=== PATIENT | male | born 1995 | race Caucasian/White ===

== ENCOUNTER → 2017-05-18 | Outpatient (CLI) | payer OTHER ==
--- NOTE | 2017-05-19 07:08 | XR ---
Right foot HISTORY: Pain 3 views of the right foot No comparisons Bone mineralization, joint spaces and alignment are maintained. No fracture or dislocation. Question soft tissue swelling laterally. IMPRESSION: Correlate for soft tissue swelling, foot MRI may be of benefit.
== END | disposition home or self-care (01) ==
LOC: RADXRMAIN 16:22
PROVIDERS: ATTEND Internal Medicine
DX: M79.671 Pain in right foot (principal)

== ENCOUNTER 2019-06-19 19:57 | Emergency (ER) | payer OTHER ==
[2019-06-19] MEDS ORDERED: KETOROLAC 30 MG/ML 1 ML VIAL IVP STA (20:29)
[2019-06-19] MEDS ORDERED: SODIUM CHLORIDE 0.9% 1,000 ML IV STA (20:29)
--- NOTE | 2019-06-19 20:41 | ED ---
Abdominal Pain HPI - General Chief Complaint: Abdominal Pain Stated Complaint: Abd Pain, Hernia Time Seen by Provider: 06/19/19 20:10 Source: patient, RN notes reviewed Mode of arrival: ambulatory Limitations: no limitations - History of Present Illness Initial Comments: This is a 23-year-old male with a benign past medical history who states that he's been having left lower quadrant abdominal pain for the past several days. It sharp in nature gets as severe as 5/10 severity currently is 3/10. No nausea vomiting diarrhea no overt fevers chills sweats no dysuria hematuria. No constipation diarrhea. He states he was seen at [facility] and sent here for evaluation for possible hernia. He does state he had done some heavy lifting months ago helping a friend move he did not do any heavy lifting recently. 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 ROS Other: All systems not noted in ROS Statement are negative. Past Medical History Past Medical History: No Reported History History of Any Multi-Drug Resistant Organisms: None Reported Past Surgical History: No Surgical Hx Reported Past Psychological History: No Psychological Hx Reported Smoking Status: Never smoker Past Alcohol Use History: None Reported Past Drug Use History: None Reported General Exam - General Exam Comments Initial Comments: This is a well-developed obese male who is awake alert oriented 3 Limitations: no limitations General appearance: alert, in no apparent distress Head exam: Present: atraumatic, normocephalic, normal inspection Eye exam: Present: normal appearance, PERRL, EOMI. Absent: scleral icterus, conjunctival injection, periorbital swelling ENT exam: Present: normal exam, mucous membranes moist Neck exam: Present: normal inspection. Absent: tenderness, meningismus, lymphadenopathy Respiratory exam: Present: normal lung sounds bilaterally. Absent: respiratory distress, wheezes, rales, rhonchi, stridor Cardiovascular Exam: Present: regular rate, normal rhythm, normal heart sounds. Absent: systolic murmur, diastolic murmur, rubs, gallop, clicks GI/Abdominal exam: Present: soft, tenderness (Left lower quadrant tenderness palpation no overt guarding rebound masses or bruits no definitive findings of hernia at this time), normal bowel sounds. Absent: distended, guarding, rebound, rigid Rectal exam: Present: deferred exam: Present: normal inspection. Absent: testicular tenderness Extremities exam: Present: normal inspection, full ROM, normal capillary refill. Absent: tenderness, pedal edema, joint swelling, calf tenderness Back exam: Present: normal inspection Neurological exam: Present: alert, oriented X3, CN II-XII intact Psychiatric exam: Present: normal affect, normal mood Skin exam: Present: warm, dry, intact, normal color. Absent: rash Course Vital Signs 06/19/19 06/19/19 06/19/19 20:01 20:44 22:30 Temperature 99.6 F 100.5 F H 98.4 F Pulse Rate 82 101 H 123 H Respiratory 18 18 16 Rate Blood Pressure 143/72 138/77 142/78 O2 Sat by Pulse 99 100 98 Oximetry Medical Decision Making - Medical Decision Making I did discuss the finding with the patien and offered admission which the patient declined due to taking care of his disabled father. He will instead try out patient Rx with return parameters. - Lab Data Result diagrams: 06/19/19 20:39 06/19/19 20:39 Lab Results 06/19/19 06/19/19 06/19/19 Range/Units 20:39 20:39 20:54 WBC 12.3 H (3.8-10.6) k/uL RBC 5.13 (4.30-5.90) m/uL Hgb 15.0 (13.0-17.5) gm/dL Hct 44.6 (39.0-53.0) % MCV 87.0 (80.0-100.0) fL MCH 29.2 (25.0-35.0) pg MCHC 33.6 (31.0-37.0) g/dL RDW 12.9 (11.5-15.5) % Plt Count 296 (150-450) k/uL Neutrophils % 85 % Lymphocytes % 8 % Monocytes % 4 % Eosinophils % 1 % Basophils % 0 % Neutrophils # 10.4 H (1.3-7.7) k/uL Lymphocytes # 1.0 (1.0-4.8) k/uL Monocytes # 0.6 (0-1.0) k/uL Eosinophils # 0.2 (0-0.7) k/uL Basophils # 0.0 (0-0.2) k/uL Sodium 137 (137-145) mmol/L Potassium 4.5 (3.5-5.1) mmol/L Chloride 101 (98-107) mmol/L Carbon Dioxide 26 (22-30) mmol/L Anion Gap 10 mmol/L BUN 12 (9-20) mg/dL Creatinine 0.95 (0.66-1.25) mg/dL Est GFR (CKD-EPI)AfAm >90 (>60 ml/min/1.73 sqM) Est GFR (CKD-EPI)NonAf >90 (>60 ml/min/1.73 sqM) Glucose 100 H (74-99) mg/dL Plasma Lactic Acid Yang 1.1 (0.7-2.0) mmol/L Calcium 9.3 (8.4-10.2) mg/dL Magnesium 1.7 (1.6-2.3) mg/dL Total Bilirubin 0.6 (0.2-1.3) mg/dL AST 34 (17-59) U/L ALT 40 (4-49) U/L Alkaline Phosphatase 97 (38-126) U/L Creatine Kinase 376 H (55-170) U/L Total Protein 7.5 (6.3-8.2) g/dL Albumin 4.3 (3.5-5.0) g/dL Amylase 65 (30-110) U/L Lipase 90 (23-300) U/L Urine Color Urine Appearance (Clear) Urine pH (5.0-8.0) Ur Specific Gallagher (1.001-1.035) Urine Protein (Negative) Urine Glucose (UA) (Negative) Urine Ketones (Negative) Urine Blood (Negative) Urine Nitrite (Negative) Urine Bilirubin (Negative) Urine Urobilinogen (<2.0) mg/dL Ur Leukocyte Esterase (Negative) Urine RBC (0-5) /hpf Urine WBC (0-5) /hpf Amorphous Sediment (None) /hpf Urine Mucus (None) /hpf 06/19/19 Range/Units 22:22 WBC (3.8-10.6) k/uL RBC (4.30-5.90) m/uL Hgb (13.0-17.5) gm/dL Hct (39.0-53.0) % MCV (80.0-100.0) fL MCH (25.0-35.0) pg MCHC (31.0-37.0) g/dL RDW (11.5-15.5) % Plt Count (150-450) k/uL Neutrophils % % Lymphocytes % % Monocytes % % Eosinophils % % Basophils % % Neutrophils # (1.3-7.7) k/uL Lymphocytes # (1.0-4.8) k/uL Monocytes # (0-1.0) k/uL Eosinophils # (0-0.7) k/uL Basophils # (0-0.2) k/uL Sodium (137-145) mmol/L Potassium (3.5-5.1) mmol/L Chloride (98-107) mmol/L Carbon Dioxide (22-30) mmol/L Anion Gap mmol/L BUN (9-20) mg/dL Creatinine (0.66-1.25) mg/dL Est GFR (CKD-EPI)AfAm (>60 ml/min/1.73 sqM) Est GFR (CKD-EPI)NonAf (>60 ml/min/1.73 sqM) Glucose (74-99) mg/dL Plasma Lactic Acid Yang (0.7-2.0) mmol/L Calcium (8.4-10.2) mg/dL Magnesium (1.6-2.3) mg/dL Total Bilirubin (0.2-1.3) mg/dL AST (17-59) U/L ALT (4-49) U/L Alkaline Phosphatase (38-126) U/L Creatine Kinase (55-170) U/L Total Protein (6.3-8.2) g/dL Albumin (3.5-5.0) g/dL Amylase (30-110) U/L Lipase (23-300) U/L Urine Color Yellow Urine Appearance Turbid (Clear) Urine pH 5.5 (5.0-8.0) Ur Specific Gallagher 1.026 (1.001-1.035) Urine Protein Trace H (Negative) Urine Glucose (UA) Negative (Negative) Urine Ketones Negative (Negative) Urine Blood Negative (Negative) Urine Nitrite Negative (Negative) Urine Bilirubin Negative (Negative) Urine Urobilinogen <2.0 (<2.0) mg/dL Ur Leukocyte Esterase Negative (Negative) Urine RBC <1 (0-5) /hpf Urine WBC 2 (0-5) /hpf Amorphous Sediment Rare H (None) /hpf Urine Mucus Many H (None) /hpf - Radiology Data Radiology results: report reviewed ([id number]), image reviewed (ct positve for diverticulosis) Disposition Clinical Impression: Abdominal pain, Diverticulitis large intestine Disposition: HOME SELF-CARE Condition: Fair Instructions (If sedation given, give patient instructions): Abdominal Pain (ED), Diverticulitis (ED) Prescriptions: metroNIDAZOLE [Flagyl] 500 mg PO QID #40 tab Ibuprofen 800 mg PO Q6HR PRN #20 tablet PRN Reason: Pain Levofloxacin [Levaquin] 750 mg PO DAILY 3 Days #10 tab Is patient prescribed a controlled substance at d/c from ED?: No Referrals: Samuel Griggs MD [Primary Care Provider] - 1-2 days
[2019-06-19 20:59] LABS: Basophils % (A) 0 %; Eosinophils # (A) 0.2 k/uL (0-0.7); Eosinophils % (A) 1 %; HCT 44.6 % (39.0-53.0); Lymphocytes % (A) 8 %; MCH 29.2 pg (25.0-35.0); MCHC 33.6 g/dL (31.0-37.0); Monocytes # (A) 0.6 k/uL (0-1.0); Monocytes % (A) 4 %; Neutrophils # (A) 10.4 k/uL (1.3-7.7); Neutrophils % (A) 85 %; Platelet Count 296 k/uL (150-450); RBC 5.13 m/uL (4.30-5.90); RDW 12.9 % (11.5-15.5); WBC 12.3 k/uL (3.8-10.6)
[2019-06-19 21:06] LABS: ALT 40 U/L (4-49); AST 34 U/L (17-59); African American GFR (CKD) >90 (>60 ml/min/1.73 sqM); Albumin 4.3 g/dL (3.5-5.0); Alkaline Phosphatase 97 U/L (38-126); Amylase 65 U/L (30-110); Anion Gap 10 mmol/L; Blood Urea Nitrogen 12 mg/dL (9-20); Calcium 9.3 mg/dL (8.4-10.2); Carbon Dioxide 26 mmol/L (22-30); Chloride 101 mmol/L (98-107); Creatine Kinase 376 U/L (55-170); Glucose 100 mg/dL (74-99); Magnesium 1.7 mg/dL (1.6-2.3); Non-African American GFR(CKD) >90 (>60 ml/min/1.73 sqM); Potassium 4.5 mmol/L (3.5-5.1); Sodium 137 mmol/L (137-145); Total Bilirubin 0.6 mg/dL (0.2-1.3); Total Protein 7.5 g/dL (6.3-8.2)
--- NOTE | 2019-06-19 22:34 | CT ---
EXAMINATION TYPE: CT abdomen pelvis wo con DATE OF EXAM: 06/19/2019 COMPARISON: None INDICATION: abdominal pain DLP: 2321.2 mGycm, Automated exposure control for dose reduction was used. CONTRAST: 0 mL of Isovue 300. Study performed without Oral Contrast TECHNIQUE: Axial images were obtained from above the diaphragm to the pubic rami in the axial plane a t 5 mm thick sections. Reconstructed images are reviewed on the computer in the coronal plane. FINDINGS: Limited CT sections are obtained the lung bases. The lung bases are clear. Very minimal hiatal shashi ia may be present. CT ABDOMEN: Liver: Normal Spleen: Normal Pancreas: Normal Adrenal glands: The adrenal glands are normal. Gallbladder: Normal Kidneys: No masses are evident. No hydronephrosis is present. No cysts are present. Study is witho ut intravenous contrast. No renal stones are evident. Aorta: Normal Inferior vena cava: Normal. CT PELVIS: Loops of bowel within the abdomen are unremarkable. Within the pelvis there is inflammatory change adjacent to the superior posterior aspect of the mid s igmoid colon. Couple of diverticuli are evident. As tiny air-filled diverticulum is present within th is inflammatory region. Findings are compatible with acute diverticulitis mid sigmoid colon. No absce ss formation or free air is identified. The study is without oral contrast causing some limitation of the bowel evaluation. Appendix: Normal as visualized. Urinary bladder: Normal. Genitourinary structures: Prostate is normal. There is some moderate free fluid within the pelvis whi ch is abnormal in a male. Osseous structures: No suspicious lytic or sclerotic lesions. IMPRESSIONS: 1. Acute diverticulitis mid sigmoid colon. No abscess formation or free air is identified. 2. Moderate free fluid within the pelvis. 3. Small hiatal hernia may be present.
[2019-06-19 22:46] LABS: Amorphous Sediment,Urine Rare /hpf; Appearance,Urine Turbid (Clear); Bilirubin,Urine Negative (Negative); Blood,Urine Negative (Negative); Color,Urine Yellow; Glucose,Urine (UA) Negative (Negative); Ketones,Urine Negative (Negative); Leukocyte Esterase,Urine Negative (Negative); Mucus,Urine Many /hpf; Nitrite,Urine Negative (Negative); PH, Urine 5.5 (5.0-8.0); Protein,Urine Trace (Negative); RBC,Urine <1 /hpf (0-5); Specific Gravity,Urine 1.026 (1.001-1.035); Urobilinogen,Urine <2.0 mg/dL (<2.0); WBC,Urine 2 /hpf (0-5)
[2019-06-19] MEDS ORDERED: cefTRIAXone IN SWFI 1,000 MG/10 ML SYRINGE IVP STA (22:56)
[2019-06-19] MEDS ORDERED: LEVOFLOXACIN 750 MG TAB PO STA (22:58)
[2019-06-19] MEDS ORDERED: metroNIDAZOLE 500 MG TAB PO STA (22:58)
[2019-06-19 23:25] VITALS: BP 134/82; PULSE 116; RESP 18; TEMP 98.5
== END 2019-06-19 23:26 | disposition home or self-care (01) ==
LOC: EC 19:57
DX: K57.32 Diverticulitis of large intestine without perforation or abscess without bleeding (principal); Z88.0 Allergy status to penicillin; Z91.018 Allergy to other foods; Z53.29 Procedure and treatment not carried out because of patient's decision for other reasons
CPT/HCPCS: 36415; 80053; 82150; 82550; 83605; 83690; 83735; 85025; 81001; 87040; 74176; 99284; 96374; 96361 ×3; J1885

== ENCOUNTER 2021-04-07 00:26 | Observation (INO) | payer OTHER ==
[2021-04-07] MEDS ORDERED: SODIUM CHLORIDE 0.9% 1,000 ML IV STA (02:22)
[2021-04-07] MEDS ORDERED: ONDANSETRON ODT 8 MG TAB.RAPDIS PO STA (02:22)
[2021-04-07] MEDS ORDERED: HYDROmorphone 0.5 MG/0.5 ML SYRINGE IVP STA (02:22)
[2021-04-07] MEDS ORDERED: ACETAMINOPHEN TAB 500 MG TAB PO STA (02:23)
[2021-04-07 03:31] LABS: ALT 35 U/L (4-49); AST 43 U/L (17-59); African American GFR (CKD) >90 (>60 ml/min/1.73 sqM); Albumin 3.7 g/dL (3.5-5.0); Alkaline Phosphatase 100 U/L (38-126); Anion Gap 10 mmol/L; Blood Urea Nitrogen 12 mg/dL (9-20); Calcium 9.4 mg/dL (8.4-10.2); Carbon Dioxide 23 mmol/L (22-30); Chloride 101 mmol/L (98-107); Glucose 249 mg/dL (74-99); Lipase 134 U/L (23-300); Non-African American GFR(CKD) >90 (>60 ml/min/1.73 sqM); Potassium 4.3 mmol/L (3.5-5.1); Sodium 134 mmol/L (137-145); Total Bilirubin 0.5 mg/dL (0.2-1.3); Total Protein 6.9 g/dL (6.3-8.2)
--- NOTE | 2021-04-07 03:38 | ED ---
Abdominal Pain HPI - General Chief Complaint: Abdominal Pain Stated Complaint: Abdominal pain Time Seen by Provider: 04/07/21 02:22 Source: patient Mode of arrival: ambulatory Limitations: no limitations - History of Present Illness Initial Comments: 25-year-old male patient presents for evaluation of left lower quadrant abdominal pain. Patient states he has felt chilled throughout the day. States he has not had a bowel movement in 2 days. Denies any diarrhea. Reports normal urination. Denies nausea or vomiting. Does have a history of diverticulitis and states this feels the same. He has not taken any medication for his symptoms. Patient denies any recent rash, cough, shortness of breath, chest pain, back pain, numbness, tingling, dizziness, weakness, hematuria, dysuria, urinary urgency, urinary frequency, headache, visual changes, or any other complaints. - Related Data Previous Rx's Medication Instructions Recorded Ibuprofen 800 mg PO Q6HR PRN #20 tablet 06/19/19 Levofloxacin [Levaquin] 750 mg PO DAILY 3 Days #10 tab 06/19/19 metroNIDAZOLE [Flagyl] 500 mg PO QID #40 tab 06/19/19 Allergies Allergy/AdvReac Type Severity Reaction Status Date / Time tree nut [Nut] Allergy Anaphylaxis Verified 04/07/21 00:49 Penicillins AdvReac Unknown Verified 04/07/21 00:49 Childhood Review of Systems ROS Statement: Those systems with pertinent positive or pertinent negative responses have been documented in the HPI. ROS Other: All systems not noted in ROS Statement are negative. Past Medical History Past Medical History: No Reported History Additional Past Medical History / Comment(s): diverticulitis History of Any Multi-Drug Resistant Organisms: None Reported Past Surgical History: No Surgical Hx Reported Past Psychological History: No Psychological Hx Reported Smoking Status: Never smoker Past Alcohol Use History: None Reported Past Drug Use History: None Reported General Exam Limitations: no limitations General appearance: alert, in no apparent distress, other (This is a well-devel oped, well-nourished adult male in no acute distress.) ENT exam: Present: normal exam, normal oropharynx, mucous membranes moist Respiratory exam: Present: normal lung sounds bilaterally. Absent: respiratory distress, wheezes, rales, rhonchi, stridor Cardiovascular Exam: Present: normal rhythm, tachycardia, normal heart sounds. Absent: systolic murmur, diastolic murmur, rubs, gallop, clicks GI/Abdominal exam: Present: soft, tenderness (Left lower quadrant), normal bowel sounds. Absent: distended, guarding, rebound, rigid Neurological exam: Present: alert, oriented X3, CN II-XII intact Psychiatric exam: Present: normal affect, normal mood Skin exam: Present: warm, dry, intact, normal color. Absent: rash Course Vital Signs 04/07/21 04/07/21 00:47 04:43 Temperature 100.6 F H 97.8 F Pulse Rate 130 H 125 H Respiratory 20 16 Rate Blood Pressure 168/105 145/99 O2 Sat by Pulse 98 100 Oximetry Medical Decision Making - Medical Decision Making 25-year-old male patient presented for evaluation of left lower quadrant abdominal pain. Physical examination did reveal left lower quadrant tenderness. Labs reviewed and did reveal white blood cell count 10.7, neutrophils 7.9. Blood sugar is elevated at 249, no history of diabetes, HgbA1C added. Lactic acid is normal. He is negative for COVID. CT abdomen and pelvis was obtained and did show evidence for diverticulitis with Fragmin and extraluminal air bubbles consistent for perforation. He does have penicillin ALLERGY so he'll be started on Flagyl, Vanco, and cefepime. I did discuss findings and results with the patient. He'll be admitted to the hospital for further evaluation and monitoring. Dr. Montaño is accepting. My attending is Dr. Mendez. - Lab Data Result diagrams: 04/07/21 02:47 04/07/21 02:47 Lab Results 04/07/21 04/07/21 04/07/21 Range/Units 02:47 02:47 02:47 WBC 10.7 H (3.8-10.6) k/uL RBC 4.84 (4.30-5.90) m/uL Hgb 14.8 (13.0-17.5) gm/dL Hct 44.0 (39.0-53.0) % MCV 90.9 (80.0-100.0) fL MCH 30.6 (25.0-35.0) pg MCHC 33.7 (31.0-37.0) g/dL RDW 13.0 (11.5-15.5) % Plt Count 301 (150-450) k/uL MPV 8.1 Neutrophils % 74 % Lymphocytes % 19 % Monocytes % 4 % Eosinophils % 2 % Basophils % 0 % Neutrophils # 7.9 H (1.3-7.7) k/uL Lymphocytes # 2.0 (1.0-4.8) k/uL Monocytes # 0.4 (0-1.0) k/uL Eosinophils # 0.2 (0-0.7) k/uL Basophils # 0.0 (0-0.2) k/uL Sodium 134 L (137-145) mmol/L Potassium 4.3 (3.5-5.1) mmol/L Chloride 101 (98-107) mmol/L Carbon Dioxide 23 (22-30) mmol/L Anion Gap 10 mmol/L BUN 12 (9-20) mg/dL Creatinine 0.78 (0.66-1.25) mg/dL Est GFR (CKD-EPI)AfAm >90 (>60 ml/min/1.73 sqM) Est GFR (CKD-EPI)NonAf >90 (>60 ml/min/1.73 sqM) Glucose 249 H (74-99) mg/dL Plasma Lactic Acid Yang 1.8 (0.7-2.0) mmol/L Calcium 9.4 (8.4-10.2) mg/dL Total Bilirubin 0.5 (0.2-1.3) mg/dL AST 43 (17-59) U/L ALT 35 (4-49) U/L Alkaline Phosphatase 100 (38-126) U/L Total Protein 6.9 (6.3-8.2) g/dL Albumin 3.7 (3.5-5.0) g/dL Lipase 134 (23-300) U/L Coronavirus (PCR) (Not Detectd) 04/07/21 Range/Units 02:47 WBC (3.8-10.6) k/uL RBC (4.30-5.90) m/uL Hgb (13.0-17.5) gm/dL Hct (39.0-53.0) % MCV (80.0-100.0) fL MCH (25.0-35.0) pg MCHC (31.0-37.0) g/dL RDW (11.5-15.5) % Plt Count (150-450) k/uL MPV Neutrophils % % Lymphocytes % % Monocytes % % Eosinophils % % Basophils % % Neutrophils # (1.3-7.7) k/uL Lymphocytes # (1.0-4.8) k/uL Monocytes # (0-1.0) k/uL Eosinophils # (0-0.7) k/uL Basophils # (0-0.2) k/uL Sodium (137-145) mmol/L Potassium (3.5-5.1) mmol/L Chloride (98-107) mmol/L Carbon Dioxide (22-30) mmol/L Anion Gap mmol/L BUN (9-20) mg/dL Creatinine (0.66-1.25) mg/dL Est GFR (CKD-EPI)AfAm (>60 ml/min/1.73 sqM) Est GFR (CKD-EPI)NonAf (>60 ml/min/1.73 sqM) Glucose (74-99) mg/dL Plasma Lactic Acid Yang (0.7-2.0) mmol/L Calcium (8.4-10.2) mg/dL Total Bilirubin (0.2-1.3) mg/dL AST (17-59) U/L ALT (4-49) U/L Alkaline Phosphatase (38-126) U/L Total Protein (6.3-8.2) g/dL Albumin (3.5-5.0) g/dL Lipase (23-300) U/L Coronavirus (PCR) Not Detected (Not Detectd) - Radiology Data Radiology results: report reviewed, image reviewed CT abdomen and pelvis with contrast was obtained. Report was reviewed in its entirety. Impression by Dr. Ellington shows diverticulitis with phlegmon and extraluminal air bubbles anterior to the mid sigmoid colon related to a localized perforation. Diverticulitis and more medial location as demonstrated on the previous exam. No drainable fluid collection. Disposition Clinical Impression: Diverticulitis, Perforated diverticulum Disposition: ADMITTED IP TO THIS [facility] Condition: Serious Referrals: Samuel Griggs MD [Primary Care Provider] - 1-2 days Decision to Admit Reason: Admit from [facility] Decision Date: 04/07/21 Decision Time: 04:45
[2021-04-07 03:44] LABS: Basophils % (A) 0 %; Eosinophils # (A) 0.2 k/uL (0-0.7); Eosinophils % (A) 2 %; HGB 14.8 gm/dL (13.0-17.5); Lymphocytes % (A) 19 %; MCH 30.6 pg (25.0-35.0); MCHC 33.7 g/dL (31.0-37.0); MCV 90.9 fL (80.0-100.0); Mean Platelet Volume 8.1; Monocytes # (A) 0.4 k/uL (0-1.0); Monocytes % (A) 4 %; Neutrophils # (A) 7.9 k/uL (1.3-7.7); Neutrophils % (A) 74 %; Platelet Count 301 k/uL (150-450); RBC 4.84 m/uL (4.30-5.90); WBC 10.7 k/uL (3.8-10.6)
--- NOTE | 2021-04-07 04:21 | CT ---
EXAMINATION TYPE: CT abdomen pelvis w con DATE OF EXAM: 04/07/2021 COMPARISON: 06/19/2019 HISTORY: LLQ pain; hx diverticulitis. prior without on PACS. CT DLP: 4618.4 mGycm Automated exposure control for dose reduction was used. CONTRAST: Performed with IV Contrast, patient injected with 100ml mL of Isovue 300. Images obtained from the diaphragm to the floor the pelvis with IV contrast. Lung bases are clear. There is no pleural effusion. Heart size is normal. There is fatty infiltration of the liver. Spleen is intact. There is no pancreatic mass. Gallbladder appears normal. The stomach is intact. There is no adrenal mass. Kidneys show satisfactory contrast opacification. There is no hydronephrosi s. There is no retroperitoneal adenopathy. Ureters are not dilated. Bladder distends smoothly. There is no inguinal hernia. There is fat stranding and extraluminal air bubbles anterior to the mid sigmoid colon related to acut e diverticulitis. No drainable fluid collection. Inflammatory mass measures 6 cm. There are scattered small sigmoid diverticula. Appendix is posterior and appears normal. There is no ascites. There is no evidence of a bowel obstruction. The lumbar vertebrae have normal alignment. Posterior elements are intact. There is no compression fr acture. IMPRESSION: There is diverticulitis with phlegmon and extraluminal air bubbles anterior to the mid sigmoid colon related to localized perforation. Diverticulitis in more medial location as demonstrated on the previ ous exam. No drainable fluid collection.
[2021-04-07] MEDS ORDERED: metroNIDAZOLE-NS PMX 500 MG in SALINE 1 100ML.BAG IVPB STA (04:40)
[2021-04-07] MEDS ORDERED: CEFEPIME 2 GM in SODIUM CHLORIDE 0.9% 100 ML IVPB STA (04:40)
[2021-04-07] MEDS ORDERED: VANCOMYCIN IV PER PHARMACY 1 EACH MISC MISCELLANE PRN (04:40)
[2021-04-07] MEDS ORDERED: NALOXONE 0.4 MG/ML 1 ML VIAL IV PRN (04:42)
[2021-04-07 04:53] LABS: Glucose,Whole Blood 188 mg/dL (75-99)
[2021-04-07] MEDS ORDERED: VANCOMYCIN 2,250 MG in SODIUM CHLORIDE 0.9% 500 ML 500 ML IVPB ONE (05:00)
[2021-04-07 05:14] LABS: Appearance,Urine Clear (Clear); Bilirubin,Urine Negative (Negative); Blood,Urine Negative (Negative); Color,Urine Yellow; Glucose,Urine (UA) 4+ (Negative); Ketones,Urine Negative (Negative); Leukocyte Esterase,Urine Negative (Negative); Nitrite,Urine Negative (Negative); PH, Urine 5.5 (5.0-8.0); Protein,Urine Negative (Negative); Urobilinogen,Urine <2.0 mg/dL (<2.0)
[2021-04-07 05:22] LABS: Specific Gravity,Urine >1.050 (1.001-1.035)
[2021-04-07] MEDS: SODIUM CHLORIDE 0.9% 1,000 ML IV SCH ×2 (05:31→18:04)
[2021-04-07 12:03] LABS: Glucose,Whole Blood 157 mg/dL (75-99)
--- NOTE | 2021-04-07 13:19 | P.GSHP ---
History of Present Illness H&P Date: 04/07/21 CHIEF COMPLAINT: Left lower quadrant abdominal pain HISTORY OF PRESENT ILLNESS: 25-year-old male who presented to the emergency department early this morning with complaints of left lower quadrant abdominal pain. He states the pain started 2 days ago. Not associated with any nausea or vomiting. He denied any fevers or chills at home. He does state he has a history of diverticulitis diagnosed approximately 2 years ago for which she was not hospitalized at that time due to family obligations but was given outpatient antibiotics. He has no previous history of colonoscopy. No He states surgical history. pain in the left lower quadrant was as bad as a 9 out of 10, currently it has improved and is approximately 5 out of 10. He states the pain is intermittent. He had a CT of the abdomen and pelvis that did show diverticulitis with phlegmon and extraluminal air bubbles anterior to mid sigmoid colon related to a localized perforation. No drainable fluid collectio n. He was noted to be febrile on admission max temp of 100.6 with leukocytosis. PAST MEDICAL HISTORY: Diverticulitis PAST SURGICAL HISTORY: No Previous surgical history MEDICATIONS: See list. ALLERGIES: See list. SOCIAL HISTORY: No illicit drug use. REVIEW OF SYSTEMS: CONSTITUTIONAL: Denies fever or chills. HEENT: Denies blurred vision, vision changes, or eye pain. Denies hemoptysis CARDIOVASCULAR: Denies chest pain or pressure. RESPIRATORY: No shortness of breath. GASTROINTESTINAL: See HPI for pertinent findings HEMATOLOGIC: Denies bleeding disorders. GENITOURINARY: Denies any blood in urine or increased urinary frequency. SKIN: Denies pruitis. Denies rash. PHYSICAL EXAM: VITAL SIGNS: Reviewed GENERAL: Well-developed in no acute distress. HEENT: No sclera icterus. Extraocular movements grossly intact. Moist buccal mucosa. Head is atraumatic, normocephalic. No nasal drainage. ABDOMEN: Soft. Obese. Nondistended. Tenderness with palpation toleft lower quadrant. NEUROLOGIC: Alert and oriented. Cranial nerves II through XII grossly intact. LABORATORY DATA: WBC 10.7 hemoglobin 14.8 platelet count 301,000 Sodium 134 potassium 4.3 BUN 12 creatinine 0.78 glucose 249 Total bilirubin 0.5 AST 43 ALT 35 alkaline phosphatase 100 lipase 134 IMAGING: CT abdomen and pelvis with contrast Diverticulitis with phlegmon and extraluminal air bubbles anterior to the mid sigmoid colon related to localized perforation. Diverticulitis is more medial location as demonstrated on the previous exam. No drainable fluid collection. ASSESSMENT: 1. Acute diverticulitis with localized perforation, no drainable fluid collection per CT abdomen and pelvis 2. Left lower quadrant pain 3. Fever 4. Leukocytosis PLAN: 1. Keep Nothing by mouth 2. Continue IV antibiotics, Flagyl and vancomycin 3. CBC, BMP, Vanco trough tomorrow 4. Pain patient has needed 5. Antiemetics as needed 6. No plans on surgical intervention at this time, we'll continue to monitor c losely. The impression and plan of care has been dictated as directed. Dr. Montaño I performed a history and examination of this patient, discussed the same with the dictator. I agree with the dictator's note ,documented as a scribe. Any additional findings or plans will be noted. Past Medical History Past Medical History: No Reported History Additional Past Medical History / Comment(s): diverticulitis History of Any Multi-Drug Resistant Organisms: None Reported Past Surgical History: No Surgical Hx Reported Past Psychological History: No Psychological Hx Reported Smoking Status: Never smoker Past Alcohol Use History: None Reported Past Drug Use History: None Reported - Past Family History Father Additional Family Medical History / Comment(s): Father from a "bedsore" Mother Family Medical History: Cancer Additional Family Medical History / Comment(s): Mother from thyroid cancer. Medications and Allergies Home Medications Medication Instructions Recorded Confirmed Type No Known Home Medications 04/07/21 04/07/21 History Allergies Allergy/AdvReac Type Severity Reaction Status Date / Time Penicillins Allergy Unknown Verified 04/07/21 06:32 Childhood tree nut [Nut] Allergy Anaphylaxis Verified 04/07/21 06:32 Surgical - Exam Vital Signs Temp Pulse Resp BP Pulse Ox 100.6 F H 130 H 20 168/105 98 04/07/21 00:47 04/07/21 00:47 04/07/21 00:47 04/07/21 00:47 04/07/21 00:47 Results - Labs 04/07/21 02:47 04/07/21 02:47 Abnormal Lab Results - Last 24 Hours (Table) 04/07/21 04/07/21 04/07/21 Range/Units 02:47 02:47 02:47 WBC 10.7 H (3.8-10.6) k/uL Neutrophils # 7.9 H (1.3-7.7) k/uL Sodium 134 L (137-145) mmol/L Glucose 249 H (74-99) mg/dL POC Glucose (mg/dL) (75-99) mg/dL Ur Specific Conway >1.050 H (1.001-1.035) Urine Glucose (UA) 4+ H (Negative) 04/07/21 Range/Units 04:50 WBC (3.8-10.6) k/uL Neutrophils # (1.3-7.7) k/uL Sodium (137-145) mmol/L Glucose (74-99) mg/dL POC Glucose (mg/dL) 188 H (75-99) mg/dL Ur Specific Conway (1.001-1.035) Urine Glucose (UA) (Negative) Diabetes panel 04/07/21 Range/Units 02:47 Sodium 134 L (137-145) mmol/L Potassium 4.3 (3.5-5.1) mmol/L Chloride 101 (98-107) mmol/L Carbon Dioxide 23 (22-30) mmol/L BUN 12 (9-20) mg/dL Creatinine 0.78 (0.66-1.25) mg/dL Glucose 249 H (74-99) mg/dL Calcium 9.4 (8.4-10.2) mg/dL AST 43 (17-59) U/L ALT 35 (4-49) U/L Alkaline Phosphatase 100 (38-126) U/L Total Protein 6.9 (6.3-8.2) g/dL Albumin 3.7 (3.5-5.0) g/dL Calcium panel 04/07/21 Range/Units 02:47 Calcium 9.4 (8.4-10.2) mg/dL Albumin 3.7 (3.5-5.0) g/dL Pituitary panel 04/07/21 Range/Units 02:47 Sodium 134 L (137-145) mmol/L Potassium 4.3 (3.5-5.1) mmol/L Chloride 101 (98-107) mmol/L Carbon Dioxide 23 (22-30) mmol/L BUN 12 (9-20) mg/dL Creatinine 0.78 (0.66-1.25) mg/dL Glucose 249 H (74-99) mg/dL Calcium 9.4 (8.4-10.2) mg/dL Adrenal panel 04/07/21 Range/Units 02:47 Sodium 134 L (137-145) mmol/L Potassium 4.3 (3.5-5.1) mmol/L Chloride 101 (98-107) mmol/L Carbon Dioxide 23 (22-30) mmol/L BUN 12 (9-20) mg/dL Creatinine 0.78 (0.66-1.25) mg/dL Glucose 249 H (74-99) mg/dL Calcium 9.4 (8.4-10.2) mg/dL Total Bilirubin 0.5 (0.2-1.3) mg/dL AST 43 (17-59) U/L ALT 35 (4-49) U/L Alkaline Phosphatase 100 (38-126) U/L Total Protein 6.9 (6.3-8.2) g/dL Albumin 3.7 (3.5-5.0) g/dL
[2021-04-07] MEDS: metroNIDAZOLE-NS PMX 500 MG in SALINE 1 100ML.BAG IVPB SCH ×2 (14:08→22:50)
[2021-04-07] MEDS: HYDROmorphone 0.5 MG/0.5 ML SYRINGE IVP PRN (16:19)
[2021-04-07] MEDS: VANCOMYCIN 2,250 MG in SODIUM CHLORIDE 0.9% 500 ML 500 ML IVPB SCH (16:19)
[2021-04-07 17:44] LABS: Glucose,Whole Blood 166 mg/dL (75-99)
[2021-04-07] MEDS: INSULIN ASPART (NovoLOG) 100 UNIT/ML VIAL SQ SCH (18:01)
[2021-04-07] MEDS: ENOXAPARIN 40 MG/0.4 ML SYRINGE SQ SCH (18:02)
[2021-04-07] MEDS: PANTOPRAZOLE 40 MG/10 ML VIAL IVP SCH (18:02)
[2021-04-08 00:11] LABS: Glucose,Whole Blood 114 mg/dL (75-99)
[2021-04-08] MEDS: INSULIN ASPART (NovoLOG) 100 UNIT/ML VIAL SQ SCH ×4 (00:40→17:31)
[2021-04-08] MEDS: VANCOMYCIN 2,250 MG in SODIUM CHLORIDE 0.9% 500 ML 500 ML IVPB SCH ×3 (01:03→16:37)
[2021-04-08] MEDS: HYDROmorphone 0.5 MG/0.5 ML SYRINGE IVP PRN (01:03)
[2021-04-08 06:14] LABS: Glucose,Whole Blood 129 mg/dL (75-99)
[2021-04-08] MEDS: metroNIDAZOLE-NS PMX 500 MG in SALINE 1 100ML.BAG IVPB SCH ×3 (06:14→21:14)
[2021-04-08] MEDS: ONDANSETRON 4 MG/2 ML VIAL IVP PRN (06:18)
[2021-04-08 07:29] LABS: African American GFR (CKD) >90 (>60 ml/min/1.73 sqM); Anion Gap 7 mmol/L; Blood Urea Nitrogen 8 mg/dL (9-20); Carbon Dioxide 26 mmol/L (22-30); Chloride 104 mmol/L (98-107); Glucose 137 mg/dL (74-99); Non-African American GFR(CKD) >90 (>60 ml/min/1.73 sqM); Potassium 4.1 mmol/L (3.5-5.1); Sodium 137 mmol/L (137-145)
[2021-04-08] MEDS: SODIUM CHLORIDE 0.9% 1,000 ML IV SCH ×3 (08:51→21:12)
[2021-04-08] MEDS: PANTOPRAZOLE 40 MG/10 ML VIAL IVP SCH (08:53)
[2021-04-08] MEDS: ENOXAPARIN 40 MG/0.4 ML SYRINGE SQ SCH (08:53)
[2021-04-08 09:09] LABS: Basophils # (A) 0.03 X 10*3/uL (0.00-0.10); Basophils % (A) 0.5 %; Eosinophils # (A) 0.17 X 10*3/uL (0.04-0.35); Eosinophils % (A) 2.6 %; HCT 39.1 % (39.6-50.0); HGB 12.9 g/dL (13.0-17.0); Immature Grans, Automated 0.5 %; Lymphocytes # (A) 1.55 X 10*3/uL (0.90-5.00); Lymphocytes % (A) 23.5 %; MCH 29.5 pg (27.0-32.0); MCV 89.3 fL (80.0-97.0); Mean Platelet Volume 10.7 fL (9.5-12.2); Monocytes # (A) 0.48 X 10*3/uL (0.20-1.00); Monocytes % (A) 7.3 %; NRBC Per 100 WBC 0 /100 WBCS (0.0-0.0); Neutrophils # (A) 4.33 X 10*3/uL (1.80-7.70); Neutrophils % (A) 65.6 %; Platelet Count 286 X 10*3/uL (140-440); RBC 4.38 X 10*6/uL (4.40-5.60); RDW 12.3 % (11.5-14.5); WBC 6.59 X 10*3/uL (4.50-10.00)
--- NOTE | 2021-04-08 10:26 | P.HPIM ---
History of Present Illness H&P Date: 04/07/21 Ben Burnham, is a 25-year-old male who presented to [facility] emergency room with a chief complaint of left lower quadrant abdominal pain, patient stated that he has constipation for 2 days and some chills otherwise he denies any complaints there was no nausea or vomiting no fever no diarrhea no blood in the stools and no urinary symptoms. He was evaluated in the emergency room vital examination on presentation revealed a temperature of 100.6 pulse 130 respiration 20 blood pressure 168/105 pulse ox 98% on room air Laboratory data revealed a white blood count of 10.7 hemoglobin 14.8 platelet count 301 sodium 134 potassium 4.3 chloride 101 CO2 23 BUN 12 creatinine 0.7 gl ucose level was 249 urine analysis was clear and coronavirus PCR was negative, hemoglobin A1c was elevated at 9.1 amylase and lipase normal. Testing in the emergency room revealed computed tomography scan of the abdomen and pelvis was done in the emergency room with contrast and revealed evidence of acute diverticulitis with phlegmon and extraluminal air bubbles anterior to the mid sigmoid colon related to localized perforation, no drainable fluid collection. Patient was started on IV antibiotics and was admitted to medical floor under surgical services. Medical consultation was requested for management while hospitalized. Past medical history is significant for : Patient does not have any significant past medical history, he has not been seen in our office for years, he is not taking any medications at home, obviously at this time he has evidence of diabetes mellitus. On review of systems Past Medical History Past Medical History: No Reported History Additional Past Medical History / Comment(s): diverticulitis History of Any Multi-Drug Resistant Organisms: None Reported Past Surgical History: No Surgical Hx Reported Past Anesthesia/Blood Transfusion Reactions: Unable to Obtain Additional Past Anesthesia/Blood Transfusion Reaction / Comment(s): Pt has never had surgery. Past Psychological History: No Psychological Hx Reported Smoking Status: Never smoker Past Alcohol Use History: None Reported Past Drug Use History: None Reported - Past Family History Father Additional Family Medical History / Comment(s): Father from a "bedsore" Mother Family Medical History: Cancer Additional Family Medical History / Comment(s): Mother from thyroid cancer. Medications and Allergies Home Medications Medication Instructions Recorded Confirmed Type No Known Home Medications 04/07/21 04/07/21 History Allergies Allergy/AdvReac Type Severity Reaction Status Date / Time Penicillins Allergy Unknown Verified 04/07/21 06:32 Childhood tree nut [Nut] Allergy Anaphylaxis Verified 04/07/21 06:32 Physical Exam Vitals: Vital Signs Temp Pulse Pulse Resp BP BP Pulse Ox 04/07/21 14:00 93 16 128/68 98 04/07/21 04:43 97.8 F 125 H 16 145/99 100 04/07/21 00:47 100.6 F H 130 H 20 168/105 98 Intake and Output 04/07/21 04/07/21 04/07/21 06:59 14:59 22:59 Intake Total 600 Balance 600 Intake: Intake, IV Titration 600 Amount Vancomycin 2,250 mg In 500 Sodium Chloride 0.9% 500 ml 500 ml @ 167 mls/hr IVPB Q8H [facility] Rx#: [id number] metroNIDAZOLE-NS PMX 500 100 mg In Saline 1 100ml.bag @ 100 mls/hr IVPB Q8H [facility] Rx#:[id number] Other: Weight 158.757 kg 158.757 kg In general patient is alert and oriented x 3 in no distress HEENT head normocephalic and atraumatic Neck is supple no JVD no goiter no lymphadenopathy no carotid bruit Chest examination is clear to auscultation no crackles no wheezing Cardiac exam reveals regular heart sounds S1 and S2 no gallops no murmurs Abdomen is soft with tenderness in the left lower quadrant no organomegaly with normal bowel sounds Extremity exam reveals no edema no cyanosis or clubbing Neurological examination reveals no gross focal deficits Results CBC & Chem 7: 04/08/21 06:38 04/08/21 06:38 Labs: Abnormal Lab Results - Last 24 Hours (Table) 04/07/21 04/07/21 04/07/21 Range/Units 02:47 02:47 02:47 WBC 10.7 H (3.8-10.6) k/uL Neutrophils # 7.9 H (1.3-7.7) k/uL Sodium 134 L (137-145) mmol/L Glucose 249 H (74-99) mg/dL POC Glucose (mg/dL) (75-99) mg/dL Hemoglobin A1c (0.0-6.0) % Ur Specific Standard >1.050 H (1.001-1.035) Urine Glucose (UA) 4+ H (Negative) 04/07/21 04/07/21 04/07/21 Range/Units 04:33 04:50 12:01 WBC (3.8-10.6) k/uL Neutrophils # (1.3-7.7) k/uL Sodium (137-145) mmol/L Glucose (74-99) mg/dL POC Glucose (mg/dL) 188 H 157 H (75-99) mg/dL Hemoglobin A1c 9.1 H (0.0-6.0) % Ur Specific Standard (1.001-1.035) Urine Glucose (UA) (Negative) Thrombosis Risk Factor Assmnt - Choose All That Apply Any of the Below Risk Factors Present?: Yes Each Factor Represents 1 point: Obesity (BMI >25) Other Risk Factors: No Other congenital or acquired thrombophilia - If yes, enter type in comment: No Thrombosis Risk Factor Assessment Total Risk Factor Score: 1 Thrombosis Risk Factor Assessment Level: Low Risk Assessment and Plan Plan: Acute diverticulitis with evidence of phlegmon and localized perforation. New onset diabetes mellitus History of diverticulitis DVT prophylaxis Lovenox. GI prophylaxis Protonix Patient maintained on IV antibiotics Thank you for this consultation we will continue to follow patient closely throughout stance Time with Patient: Greater than 30 (Greater than 60% of the total time spent in counseling and coordination of care)
--- NOTE | 2021-04-08 10:29 | P.PN ---
Subjective Progress Note Date: 04/08/21 Ben Burnham, is a 25-year-old male who presented to [facility] emergency room with a chief complaint of left lower quadrant abdominal pain, patient stated that he has constipation for 2 days and some chills otherwise he denies any complaints there was no nausea or vomiting no fever no diarrhea no blood in the stools and no urinary symptoms. He was evaluated in the emergency room vital examination on presentation revealed a temperature of 100.6 pulse 130 respiration 20 blood pressure 168/105 pulse ox 98% on room air Laboratory data revealed a white blood count of 10.7 hemoglobin 14.8 platelet count 301 sodium 134 potassium 4.3 chloride 101 CO2 23 BUN 12 creatinine 0.7 glucose level was 249 urine analysis was clear and coronavirus PCR was negative, hemoglobin A1c was elevated at 9.1 amylase and lipase normal. Testing in the emergency room revealed computed tomography scan of the abdomen and pelvis was done in the emergency room with contrast and revealed evidence of acute diverticulitis with phlegmon and extraluminal air bubbles anterior to the mid sigmoid colon related to localized perforation, no drainable fluid collection. Patient was started on IV antibiotics and was admitted to medical floor under surgical services. Medical consultation was requested for zara thakkar while hospitalized. Past medical history is significant for : Patient does not have any significant past medical history, he has not been seen in our office for years, he is not taking any medications at home, obviously at this time he has evidence of diabetes mellitus. On 04/08/2021 patient is alert and oriented 3. Patient reports some improvement with abdominal discomfort. Reports that he did have one episode of nausea without vomiting last night. Patient remains on IV antibiotics Flagyl and vancomycin. White blood cell 6.59. Temp 97.6, heart rate 79, respiratory rate 21, blood pressure 131/76 and patient satting 95% on room air Objective - Vital Signs Vital signs: Vital Signs Temp 97.6 F 04/08/21 08:00 Pulse 79 04/08/21 08:00 Resp 21 04/08/21 08:00 BP 131/76 04/08/21 08:00 Pulse Ox 95 04/08/21 08:00 Intake & Output 04/07/21 04/08/21 04/08/21 18:59 06:59 18:59 Intake Total 600 Balance 600 Weight 158.757 kg Intake: Intake, IV Titration 600 Amount Vancomycin 2,250 mg In 500 Sodium Chloride 0.9% 500 ml 500 ml @ 167 mls/hr IVPB Q8H [facility] Rx#: [id number] metroNIDAZOLE-NS PMX 500 100 mg In Saline 1 100ml.bag @ 100 mls/hr IVPB Q[facility]H [facility] Rx#:[id number] Other: Voiding Method Toilet Urinal # Voids 1 - Exam In general patient is alert and oriented x 3 in no distress HEENT head normocephalic and atraumatic Neck is supple no JVD no goiter no lymphadenopathy no carotid bruit Chest examination is clear to auscultation no crackles no wheezing Cardiac exam reveals regular heart sounds S1 and S2 no gallops no murmurs Abdomen is soft with tenderness in the left lower quadrant no organomegaly with normal bowel sounds Extremity exam reveals no edema no cyanosis or clubbing Neurological examination reveals no gross focal deficits - Labs CBC & Chem 7: 04/08/21 06:38 04/08/21 06:38 Labs: Abnormal Lab Results - Last 24 Hours (Table) 04/07/21 04/07/21 04/07/21 Range/Units 04:33 12:01 17:42 RBC (4.40-5.60) X 10*6/uL Hgb (13.0-17.0) g/dL Hct (39.6-50.0) % BUN (9-20) mg/dL Glucose (74-99) mg/dL POC Glucose (mg/dL) 157 H 166 H (75-99) mg/dL Hemoglobin A1c 9.1 H (0.0-6.0) % 04/08/21 04/08/21 04/08/21 Range/Units 00:10 06:12 06:38 RBC 4.38 L (4.40-5.60) X 10*6/uL Hgb 12.9 L (13.0-17.0) g/dL Hct 39.1 L (39.6-50.0) % BUN (9-20) mg/dL Glucose (74-99) mg/dL POC Glucose (mg/dL) 114 H 129 H (75-99) mg/dL Hemoglobin A1c (0.0-6.0) % 04/08/21 Range/Units 06:38 RBC (4.40-5.60) X 10*6/uL Hgb (13.0-17.0) g/dL Hct (39.6-50.0) % BUN 8 L (9-20) mg/dL Glucose 137 H (74-99) mg/dL POC Glucose (mg/dL) (75-99) mg/dL Hemoglobin A1c (0.0-6.0) % Assessment and Plan Plan: Acute diverticulitis with evidence of phlegmon and localized perforation. New onset diabetes mellitus. Hemoglobin A1c 9.1 History of diverticulitis DVT prophylaxis Lovenox. GI prophylaxis Protonix Patient maintained on IV antibiotics Thank you for this consultation we will continue to follow patient closely throughout stance
[2021-04-08 11:14] LABS: Glucose,Whole Blood 126 mg/dL (75-99)
[2021-04-08 11:18] VITALS: BMI 46.1
--- NOTE | 2021-04-08 12:03 | P.PN ---
Subjective Progress Note Date: 04/08/21 CHIEF COMPLAINT: Abdominal pain HISTORY OF PRESENT ILLNESS: PHYSICAL EXAM: VITAL SIGNS: Reviewed. GENERAL: Well-developed in no acute distress. HEENT: No sclera icterus. Extraocular movements grossly intact. Moist buccal mucosa. Head is atraumatic, normocephalic. ABDOMEN: Soft. Nondistended. Mild left lower quadrant tenderness. NEUROLOGIC: Alert and oriented. Cranial nerves II through XII grossly intact. ASSESSMENT: 1. Acute diverticulitis with localized perforation, no drainable fluid collection per CT abdomen and pelvis 2. Left lower quadrant pain 3. Fever, resolved 4. Leukocytosis, resolved PLAN: 1. May advance to clear liquid diet 2. Continue IV antibiotics, Flagyl and vancomycin 3. CBC, BMP, Vanco trough tomorrow 4. Continue with pain control/management 5. Antiemetics as needed 6. No plans on surgical intervention at this time, we'll continue to monitor closely. The impression and plan of care has been dictated as directed. Dr. Montaño I performed a history and examination of this patient, discussed the same with the dictator. I agree with the dictator's note ,documented as a scribe. Any additional findings or plans will be noted. Objective - Vital Signs Vital signs: Vital Signs Temp 97.6 F 04/08/21 08:00 Pulse 79 04/08/21 08:00 Resp 21 04/08/21 08:00 BP 131/76 04/08/21 08:00 Pulse Ox 95 04/08/21 08:00 Intake & Output 04/07/21 04/08/21 04/08/21 18:59 06:59 18:59 Intake Total 600 Balance 600 Weight 158.757 kg 158.757 kg Intake: Intake, IV Titration 600 Amount Vancomycin 2,250 mg In 500 Sodium Chloride 0.9% 500 ml 500 ml @ 167 mls/hr IVPB Q8H [facility] Rx#: [id number] metroNIDAZOLE-NS PMX 500 100 mg In Saline 1 100ml.bag @ 100 mls/hr IVPB Q8H [facility] Rx#:[id number] Other: Voiding Method Toilet Urinal # Voids 1 - Labs CBC & Chem 7: 04/08/21 06:38 04/08/21 06:38 Labs: Abnormal Lab Results - Last 24 Hours (Table) 0104/07/21 04/07/21 Range/Units 04:33 12:01 17:42 RBC (4.40-5.60) X 10*6/uL Hgb (13.0-17.0) g/dL Hct (39.6-50.0) % BUN (9-20) mg/dL Glucose (74-99) mg/dL POC Glucose (mg/dL) 157 H 166 H (75-99) mg/dL Hemoglobin A1c 9.1 H (0.0-6.0) % 04/08/21 04/08/21 04/08/21 Range/Units 00:10 06:12 06:38 RBC 4.38 L (4.40-5.60) X 10*6/uL Hgb 12.9 L (13.0-17.0) g/dL Hct 39.1 L (39.6-50.0) % BUN (9-20) mg/dL Glucose (74-99) mg/dL POC Glucose (mg/dL) 114 H 129 H (75-99) mg/dL Hemoglobin A1c (0.0-6.0) % 04/08/21 04/08/21 Range/Units 06:38 11:12 RBC (4.40-5.60) X 10*6/uL Hgb (13.0-17.0) g/dL Hct (39.6-50.0) % BUN 8 L (9-20) mg/dL Glucose 137 H (74-99) mg/dL POC Glucose (mg/dL) 126 H (75-99) mg/dL Hemoglobin A1c (0.0-6.0) %
[2021-04-08] MEDS: IOPAMIDOL CONTRAST (ORAL USE) VIAL PO PRN ×2 (14:17→15:47)
--- NOTE | 2021-04-08 16:12 | CT ---
EXAMINATION TYPE: CT abdomen pelvis wo con DATE OF EXAM: 04/08/2021 HISTORY: abdominal pain, hx of diverticulitis CT DLP: 3097.2 mGycm. Automated Exposure Control for Dose Reduction was Utilized. TECHNIQUE: CT scan of the abdomen and pelvis is performed with oral but without IV contrast. COMPARISON: CT abdomen and pelvis from yesterday and older study June 19, 2019 FINDINGS: Within the limitations of a non-contrast study, the following observations are made. LUNG BASES: No significant abnormality is appreciated. LIVER/GB: Liver remains markedly heterogeneous hypodense consistent with diffuse fatty infiltration. Mild hepatomegaly remains present. Vicarious excretion of contrast in the gallbladder is now present. PANCREAS: No significant abnormality is seen. SPLEEN: No significant abnormality is seen. ADRENALS: No significant abnormality is seen. KIDNEYS: No renal calculus or hydronephrosis seen bilaterally. BOWEL: Oral contrast reaches level terminal ileum making evaluation of distal bowel suboptimal. Scatt ered colonic diverticula are redemonstrated. Persistent moderate ill-defined fluid and fat stranding at level of the proximal to mid sigmoid colon in the midline of the upper to mid pelvis. No well-form ed fluid collection or drainable abscess. There are 3-4 tiny foci of extraluminal air system with per foration sagittal image 82 redemonstrated. Findings slightly improved from prior. GENITAL ORGANS: No gross abnormality seen. LYMPH NODES: No greater than 1cm abdominal or pelvic lymph nodes are appreciated. OSSEOUS STRUCTURES: No significant abnormality is seen. OTHER: No significant additional abnormality is seen. IMPRESSION: Redemonstration of perforated acute diverticulitis proximal to mid sigmoid colon with mod erate inflammatory change. Degree of inflammatory change and extraluminal air slightly improved from one day earlier.
[2021-04-08 17:30] LABS: Glucose,Whole Blood 126 mg/dL (75-99)
[2021-04-08 20:59] LABS: Glucose,Whole Blood 130 mg/dL (75-99)
[2021-04-08] MEDS ORDERED: VANCOMYCIN TROUGH DUE 1 EACH MISC MISCELLANE ONE (23:00)
[2021-04-09] MEDS: INSULIN ASPART (NovoLOG) 100 UNIT/ML VIAL SQ SCH ×3 (00:52→12:23)
[2021-04-09] MEDS: VANCOMYCIN 2,250 MG in SODIUM CHLORIDE 0.9% 500 ML 500 ML IVPB SCH ×2 (00:54→08:38)
[2021-04-09] MEDS: ONDANSETRON 4 MG/2 ML VIAL IVP PRN (04:09)
[2021-04-09] MEDS: metroNIDAZOLE-NS PMX 500 MG in SALINE 1 100ML.BAG IVPB SCH (05:09)
[2021-04-09 07:35] LABS: Glucose,Whole Blood 109 mg/dL (75-99)
[2021-04-09 07:55] VITALS: BP 155/92; PULSE 74; RESP 18; TEMP 97.9
[2021-04-09] MEDS: PANTOPRAZOLE 40 MG/10 ML VIAL IVP SCH (08:38)
[2021-04-09] MEDS: ENOXAPARIN 40 MG/0.4 ML SYRINGE SQ SCH (08:38)
[2021-04-09] MEDS ORDERED: lisinopriL 5 MG TAB PO SCH (10:00)
[2021-04-09 11:04] LABS: Basophils # (A) 0.03 X 10*3/uL (0.00-0.10); Basophils % (A) 0.5 %; Eosinophils # (A) 0.17 X 10*3/uL (0.04-0.35); Eosinophils % (A) 2.6 %; HCT 38.3 % (39.6-50.0); HGB 12.6 g/dL (13.0-17.0); Immature Grans, Automated 0.5 %; Lymphocytes # (A) 1.47 X 10*3/uL (0.90-5.00); Lymphocytes % (A) 22.8 %; MCH 29.5 pg (27.0-32.0); MCHC 32.9 g/dL (32.0-37.0); MCV 89.7 fL (80.0-97.0); Mean Platelet Volume 10.5 fL (9.5-12.2); Monocytes # (A) 0.41 X 10*3/uL (0.20-1.00); Monocytes % (A) 6.3 %; NRBC Per 100 WBC 0 /100 WBCS (0.0-0.0); Neutrophils # (A) 4.35 X 10*3/uL (1.80-7.70); Neutrophils % (A) 67.3 %; Platelet Count 301 X 10*3/uL (140-440); RBC 4.27 X 10*6/uL (4.40-5.60); RDW 12.3 % (11.5-14.5); WBC 6.46 X 10*3/uL (4.50-10.00)
[2021-04-09 11:16] LABS: Albumin 3.9 g/dL (3.8-4.9); Albumin/Globulin Ratio 1.7 (1.60-3.17); BUN/Creat Ratio 9.86 Ratio (12.00-20.00); Blood Urea Nitrogen 6.9 mg/dL (9.0-27.0); Globulin 2.3 g/dL (1.6-3.3); Non-African American GFR(CKD) 131.2 (60.0-200.0); Potassium 4.1 mmol/L (3.5-5.5); Total Bilirubin 0.4 mg/dL (0.30-1.20); Total Protein 6.2 g/dL (6.2-8.2)
[2021-04-09 12:07] LABS: Glucose,Whole Blood 124 mg/dL (75-99)
--- NOTE | 2021-04-09 13:35 | CDI ---
Documentation Clarification Form Date: 04/09/2021 01:27:35 PM From: Graciela OwensRicardoVANGIE reza, CCDS Admit Date: 04/08/2021 11:35:00 AM Patient Name: Ben Burnham Visit Number: [id number] Discharge Date: ATTENTION: The Clinical Documentation Specialists (CDI) and [facility] Coding Staff appreciate your assistance in clarifying documentation. Please respond to the clarification below the line at the bottom and electronically sign. The CDI & [facility] Coding staff will review the response and follow-up if needed. Please note: Queries are made part of the Legal Health Record. If you have any questions, please contact the author of this message via ITS. Dr. Samuel Griggs: The patient presented with the following clinical indicators: LLQ Abdominal pain with history of Diverticulitis, Chills, no bowel movement for 2 days and constipation. Additional clarification regarding the etiology/cause of the clinical indicators is requested. History/Risk Factors per the 04/07 Medical Management History & Physical: Diverticulitis. Clinical Indicators: Presented with LLQ abdominal pain as above. Admit with Diverticulitis with Perforated Diverticulum. 04/07 VS: T 100.6, P 130, R 20, BP 168/105, PO 98 RA, BMI: 46.2 04/07 LAB: WBC 10.7, Neutrophils 7.9, Na 134, Glucose 249, Hgb A1c 9.1, Lactic Acid 1.8 04/07 UA: Clear, specific gravity >1.050, 4+ glucose. 04/07 CT Abdomen/Pelvis: Diverticulitis with phlegmon anterior to the mid sigmoid colon related to localized perforation. Treatment 04/07: IV Dilaudid 0.5 mg x2, po Zofran 4 mg x1, IV Na Cl 1,000 mls @ 999 mls/hr q1H, IV Cefepime 100 mls @ 200 mls/hr x1, IV Flagyl 100 mls @ 100 mls/hr x1, IV Vancomycin 500 mls @ 167 mls/hr x1. In your professional opinion, please clarify if these findings signify one of the following conditions: [ x ] Sepsis POA [ ] Sepsis, Not POA [ ] Sepsis ruled out [ ] Other, please specify [ ] Unable to determine (Template Last Reviewed: April 2020) MARITZA
--- NOTE | 2021-04-09 13:37 | P.DS ---
Providers Date of admission: 04/08/21 11:35 Expected date of discharge: 04/09/21 Attending physician: Colby Montaño Consults: 04/07/21 08:11 Consult Physician Routine Consulting Provider: Samuel Griggs Consult Reason/Comments: Medical management Do you want consulting provider notified?: Yes Primary care physician: Samuel Griggs [facility] Course: Discharge diagnosis: Acute diverticulitis, new onset diabetes mellitus This is a 25-year-old male who presented to the emergency department 2 days ago with complaints of abdominal pain in the left lower quadrant. He had a CT of e abdomen and pelvis with evidence of acute diverticulitis with localized perforation. Patient was started on Flagyl and vancomycin. He's been afebrile. He he was diagnosed with new onset diabetes mellitus during this hospitalization and had been followed by Dr. Griggs and started on metformin. He had a repeat CT of the abdomen and pelvis yesterday that showed redemonstration of perforated acute diverticulitis proximal to mid sigmoid colon with moderate inflammatory change. Degree of inflammatory change and extraluminal or slightly improved from 1 day earlier. Patient has been passing gas, he denies any nausea or vomiting. He has no leukocytosis. And tolerating his diet. See chart for further details. The impression and plan of care has been dictated as directed. I performed a history and examination of this patient, discussed the same with the dictator. I agree with the dictator's note ,documented as a scribe. Any additional findings or plans will be noted. Patient Condition at Discharge: Stable Plan - Discharge Summary Discharge Rx Participant: No New Discharge Prescriptions: New metroNIDAZOLE [Flagyl] 500 mg PO BID 10 Days #20 tab metFORMIN HCL [Glucophage] 500 mg PO BID-W/MEALS #30 tab Levofloxacin [Levaquin] 500 mg PO DAILY 10 Days #10 tab lisinopriL [Zestril] 5 mg PO DAILY #30 tab Discharge Medication List Levofloxacin [Levaquin] 500 mg PO DAILY 10 Days #10 tab 04/09/21 [Rx] lisinopriL [Zestril] 5 mg PO DAILY #30 tab 04/09/21 [Rx] metFORMIN HCL [Glucophage] 500 mg PO BID-W/MEALS #30 tab 04/09/21 [Rx] metroNIDAZOLE [Flagyl] 500 mg PO BID 10 Days #20 tab 04/09/21 [Rx] Follow up Appointment(s)/Referral(s): Samuel Griggs MD [Primary Care Provider] - 1-2 days Colby Montaño MD [STAFF PHYSICIAN] - 04/14/21 Patient Instructions/Handouts: Diverticulitis (DC), Type 2 Diabetes in Adults: New Diagnosis (DC) Activity/Diet/Wound Care/Special Instructions: Notify surgeon with inability to pass flatus or have bowel movements, fever greater than 101. Patient verbalized understanding of discharge instructions. You are being sent home on 2 antibiotics. Complete all doses of antibiotics until finished. Discharge Disposition: HOME SELF-CARE
--- NOTE | 2021-04-09 17:07 | P.PN ---
Subjective Progress Note Date: 04/09/21 Ben Burnham, is a 25-year-old male who presented to [facility] emergency room with a chief complaint of left lower quadrant abdominal pain, patient stated that he has constipation for 2 days and some chills otherwise he denies any complaints there was no nausea or vomiting no fever no diarrhea no blood in the stools and no urinary symptoms. He was evaluated in the emergency room vital examination on presentation revealed a temperature of 100.6 pulse 130 respiration 20 blood pressure 168/105 pulse ox 98% on room air Laboratory data revealed a white blood count of 10.7 hemoglobin 14.8 platelet count 301 sodium 134 potassium 4.3 chloride 101 CO2 23 BUN 12 creatinine 0.7 glucose level was 249 urine analysis was clear and coronavirus PCR was negative, hemoglobin A1c was elevated at 9.1 amylase and lipase normal. Testing in the emergency room revealed computed tomography scan of the abdomen and pelvis was done in the emergency room with contrast and revealed evidence of acute diverticulitis with phlegmon and extraluminal air bubbles anterior to the mid sigmoid colon related to localized perforation, no drainable fluid collection. Patient was started on IV antibiotics and was admitted to medical floor under surgical services. Medical consultation was requested for zara charanjitliya while hospitalized. Past medical history is significant for : Patient does not have any significant past medical history, he has not been seen in our office for years, he is not taking any medications at home, obviously at this time he has evidence of diabetes mellitus. On 04/08/2021 patient is alert and oriented 3. Patient reports some improvement with abdominal discomfort. Reports that he did have one episode of nausea without vomiting last night. Patient remains on IV antibiotics Flagyl and vancomycin. White blood cell 6.59. Temp 97.6, heart rate 79, respiratory rate 21, blood pressure 131/76 and patient satting 95% on room air. On 04/09/2021 patient was seen and examined on the medical floor he is alert and oriented 3 in no apparent distress his abdominal pain has subsided he was evaluated by surgery and plan is to discharge home today he was given a prescription for Levaquin and a prescription for Flagyl for 10 days will follow up in the office in 10 days Objective - Vital Signs Vital signs: Vital Signs Temp 97.9 F 04/09/21 07:00 Pulse 74 01/27/22 07:00 Resp 18 04/09/21 07:00 BP 155/92 04/09/21 07:00 Pulse Ox 98 04/09/21 07:00 Intake & Output 04/08/21 04/09/21 04/09/21 18:59 06:59 18:59 Intake Total 1050 236 Balance 1050 236 Weight 158.757 kg Intake: Intake, IV Titration 1050 Amount Sodium Chloride 0.9% 1, 450 000 ml @ 75 mls/hr IV . [id number] SHAREE Rx#:[id number] Vancomycin 2,250 mg In 500 Sodium Chloride 0.9% 500 ml 500 ml @ 167 mls/hr IVPB Q8H SHAREE Rx#: [id number] metroNIDAZOLE-NS PMX 500 100 mg In Saline 1 100ml.bag @ 100 mls/hr IVPB Q8H SHAREE Rx#:[id number] Oral 236 Other: Voiding Method Toilet Toilet # Voids 2 - Exam In general patient is alert and oriented x 3 in no distress HEENT head normocephalic and atraumatic Neck is supple no JVD no goiter no lymphadenopathy no carotid bruit Chest examination is clear to auscultation no crackles no wheezing Cardiac exam reveals regular heart sounds S1 and S2 no gallops no murmurs Abdomen is soft with tenderness in the left lower quadrant no organomegaly with normal bowel sounds Extremity exam reveals no edema no cyanosis or clubbing Neurological examination reveals no gross focal deficits - Labs CBC & Chem 7: 04/09/21 06:35 04/09/21 06:35 Labs: Abnormal Lab Results - Last 24 Hours (Table) 04/08/21 04/08/21 04/09/21 Range/Units 17:28 20:58 06:35 RBC 4.27 L (4.40-5.60) X 10*6/uL Hgb 12.6 L (13.0-17.0) g/dL Hct 38.3 L (39.6-50.0) % BUN (9.0-27.0) mg/dL BUN/Creatinine Ratio (12.00-20.00) Ratio Glucose (70-110) mg/dL POC Glucose (mg/dL) 126 H 130 H (75-99) mg/dL AST (14-35) U/L 04/09/21 04/09/21 04/09/21 Range/Units 06:35 07:33 11:52 RBC (4.40-5.60) X 10*6/uL Hgb (13.0-17.0) g/dL Hct (39.6-50.0) % BUN 6.9 L (9.0-27.0) mg/dL BUN/Creatinine Ratio 9.86 L (12.00-20.00) Ratio Glucose 114 H (70-110) mg/dL POC Glucose (mg/dL) 109 H 124 H (75-99) mg/dL AST 81 H (14-35) U/L Assessment and Plan Plan: Acute diverticulitis with evidence of phlegmon and localized perforation. New onset diabetes mellitus. Hemoglobin A1c 9.1 History of diverticulitis DVT prophylaxis Lovenox. GI prophylaxis Protonix Patient maintained on IV antibiotics Thank you for this consultation we will continue to follow patient closely throughout stance
[2021-04-09] MEDS ORDERED: metFORMIN 500 MG TAB PO SCH (17:30)
== END 2021-04-09 14:12 | disposition home or self-care (01) ==
LOC: EC 00:26 → 6NMEDSUR 04:34 → OBSVTOIN 04-08 11:35 → INTOOBSV 04-08 11:35 → UNDODISIN 04-09 14:12
PROVIDERS: ADMIT Surgery; ATTEND Surgery
DX: A41.9 Sepsis, unspecified organism (principal); K57.20 Diverticulitis of large intestine with perforation and abscess without bleeding; E11.9 Type 2 diabetes mellitus without complications; K59.00 Constipation, unspecified; E66.9 Obesity, unspecified; Z68.42 Body mass index [BMI] 45.0-49.9, adult; Z20.822 Contact with and (suspected) exposure to COVID-19; Z88.0 Allergy status to penicillin; Z91.018 Allergy to other foods; Z80.8 Family history of malignant neoplasm of other organs or systems
CPT/HCPCS: 96376 ×3; 96366 ×4; 96372 ×3; 96375 ×3; 96361; 96365; 96367; 99285; 36415; 80053 ×2; 80048; 83605; 83690; 85025 ×3; 80202; 81003; 83036; 87635; 74176; 74177; G0378 ×3; J3370 ×3; J2405 ×2; J1650 ×3; J0692; C9113 ×3; J1170 ×2; Q9967; 96374

== ENCOUNTER 2021-05-11 11:29 | Day surgery (SDC) | payer OTHER ==
[2021-05-07 10:36] VITALS: BMI 49.1
[~2021-05-11 11:29] MED LIST: LACTATED RINGERS 1,000 ML IV SCH; LIDOCAINE 1% (10MG/ML) FOR IV START INTRADERMA PRN
[2021-05-11 12:09] VITALS: TEMP 98.4
[2021-05-11 12:27] LABS: Glucose,Whole Blood 104 mg/dL (75-99)
[2021-05-11] MEDS ORDERED: PROPOFOL 10 MG/ML 20 ML VIAL IV ONE (12:51)
[2021-05-11] MEDS ORDERED: LIDOCAINE 1% INJ 10MG/ML (20 ML MDV) ONE (12:51)
[2021-05-11] MEDS ORDERED: MIDAZOLAM 2 MG/2 ML VIAL ONE (12:51)
[2021-05-11] MEDS ORDERED: fentaNYL (PF) 50 MCG/ML 2 ML AMP ONE (12:51)
--- NOTE | 2021-05-11 13:02 | P.GSHP ---
History of Present Illness H&P Date: 05/11/21 Chief Complaint: History of perforated diverticulitis Is a 25-year-old male with a previous history of diverticulitis with abscess. Patient notes today for colonoscopy. Past Medical History Past Medical History: Diabetes Mellitus, Hypertension Additional Past Medical History / Comment(s): diverticulitis. INPT 04/08/21- 04/09/21 FOR PERFORATED DIVERTICULITIS History of Any Multi-Drug Resistant Organisms: None Reported Past Surgical History: No Surgical Hx Reported Past Anesthesia/Blood Transfusion Reactions: Unable to Obtain Additional Past Anesthesia/Blood Transfusion Reaction / Comment(s): Pt has never had surgery. Smoking Status: Never smoker - Past Family History Father Additional Family Medical History / Comment(s): Father from a "bedsore" Mother Family Medical History: Cancer Additional Family Medical History / Comment(s): Mother from thyroid cancer. Medications and Allergies Home Medications Medication Instructions Recorded Confirmed Type lisinopriL [Zestril] 5 mg PO DAILY #30 tab 04/09/21 05/07/21 Rx metFORMIN HCL [Glucophage] 500 mg PO BID-W/MEALS #30 tab 04/09/21 05/07/21 Rx Allergies Allergy/AdvReac Type Severity Reaction Status Date / Time Penicillins Allergy Unknown Verified 05/07/21 10:20 Childhood tree nut [Nut] Allergy Anaphylaxis Verified 05/07/21 10:20 Surgical - Exam Vital Signs Temp Pulse Resp BP Pulse Ox 98.4 F 82 16 119/58 97 05/11/21 12:08 05/11/21 12:08 05/11/21 12:08 05/11/21 12:08 05/11/21 12:08 Morbid obesity, BMI 47 - General well developed - ENT normal pinna - Neck no masses - Respiratory normal expansion - Cardiovascular Rhythm: regular - Abdomen Abdomen: soft, non tender Results - Labs Abnormal Lab Results - Last 24 Hours (Table) 05/11/21 Range/Units 12:17 POC Glucose (mg/dL) 104 H (75-99) mg/dL Assessment and Plan Assessment: Diverticulitis. We'll perform colonoscopy.
--- NOTE | 2021-05-11 13:10 | P.OP ---
Date of Procedure: 05/11/21 Preoperative Diagnosis: Diverticulitis Postoperative Diagnosis: Diverticulosis Procedure(s) Performed: Colonoscopy Anesthesia: MAC Surgeon: Colby Montaño Pathology: none sent Condition: stable Disposition: PACU Description of Procedure: The patient's placed on the endoscopy table in the lateral position. He received IV sedation. Digital rectal exam was performed which revealed no abnormalities. Flexible colonoscope was then placed throughout the colon. The ileocecal valve was visualized. Cecum, ascending and transverse colon appeared normal. In the descending and sigmoid colon there is mild diverticular changes. Scope was brought back the rectum this appeared normal. Scope withdrawn for patient.
[2021-05-11 13:25] VITALS: BP 111/77; PULSE 77; RESP 20
== END 2021-05-11 14:15 | disposition home or self-care (01) ==
LOC: ORWHC2ENDO 11:29
PROVIDERS: ATTEND Surgery
DX: K57.90 Diverticulosis of intestine, part unspecified, without perforation or abscess without bleeding (principal); I10 Essential (primary) hypertension; E11.9 Type 2 diabetes mellitus without complications
CPT/HCPCS: 45378; J2250; J2001; J3010; J2704

== ENCOUNTER 2021-05-12 07:45 | Inpatient (IN) | payer OTHER ==
[2021-05-07 10:43] VITALS: BMI 49.1
[~2021-05-12 07:45] MED LIST changes: +ACETAMINOPHEN TAB 500 MG TAB PO PRN; +DEXAMETHASONE SOD PHOSPHATE 4 MG/ML 1 ML VIAL IV ONE; +HEPARIN SODIUM,PORCINE/PF 5,000 UNIT/0.5 ML SYRINGE SQ PRN; +HYDROmorphone 0.5 MG/0.5 ML SYRINGE IVP PRN; -LACTATED RINGERS 1,000 ML IV SCH; -LIDOCAINE 1% (10MG/ML) FOR IV START INTRADERMA PRN; +ONDANSETRON 4 MG/2 ML VIAL IVP ONE; +ceFAZolin 3 GM in SODIUM CHLORIDE 0.9% 100 ML IVPB PRN; +metroNIDAZOLE-NS PMX 500 MG in SALINE 1 100ML.BAG IVPB PRN
--- NOTE | 2021-05-12 08:54 | P.GSHP ---
History of Present Illness H&P Date: 05/12/21 Chief Complaint: History of perforated diverticulitis This a 25-year-old male with previous history of perforated diverticulitis. Patient presents today for low anterior resection. Patient with a risk of possible colostomy. Past Medical History Past Medical History: Diabetes Mellitus, Hypertension Additional Past Medical History / Comment(s): diverticulitis. INPT 04/08/21- 04/09/21 FOR PERFORATED DIVERTICULITIS History of Any Multi-Drug Resistant Organisms: None Reported Past Surgical History: No Surgical Hx Reported Additional Past Surgical History / Comment(s): HAVING COLONOSCOPY 05/11/21 Past Anesthesia/Blood Transfusion Reactions: Unable to Obtain Additional Past Anesthesia/Blood Transfusion Reaction / Comment(s): Pt has never had surgery. Smoking Status: Never smoker - Past Family History Father Additional Family Medical History / Comment(s): Father from a "bedsore" Mother Family Medical History: Cancer Additional Family Medical History / Comment(s): Mother from thyroid cancer. Medications and Allergies Home Medications Medication Instructions Recorded Confirmed Type lisinopriL [Zestril] 5 mg PO DAILY #30 tab 04/09/21 05/12/21 Rx metFORMIN HCL [Glucophage] 500 mg PO BID-W/MEALS #30 tab 04/09/21 05/12/21 Rx Allergies Allergy/AdvReac Type Severity Reaction Status Date / Time Penicillins Allergy Unknown Verified 05/12/21 08:50 Childhood tree nut [Nut] Allergy Anaphylaxis Verified 05/12/21 08:50 Surgical - Exam - General well developed, well nourished, no distress - Eyes PERRL - ENT normal pinna - Neck no masses - Respiratory normal expansion - Cardiovascular Rhythm: regular - Abdomen Mild tenderness left lower quadrant Abdomen: soft Assessment and Plan Assessment: History of diverticula is. We'll perform low anterior resection.
[2021-05-12] MEDS ORDERED: LIDOCAINE 1% (10MG/ML) FOR IV START INTRADERMA ONE (09:10)
[2021-05-12] MEDS: LACTATED RINGERS 1,000 ML IV SCH ×2 (09:10→14:13)
[2021-05-12 09:12] LABS: Glucose,Whole Blood 96 mg/dL (75-99)
[2021-05-12] MEDS ORDERED: MIDAZOLAM 2 MG/2 ML VIAL IVP ONE (09:23)
[2021-05-12 09:48] LABS: Potassium 4.2 mmol/L (3.5-5.1)
--- NOTE | 2021-05-12 09:55 | P.ANPRN ---
Procedure Note - Anesthesia - Epidural/Spinal Epidural Continuous Time Out Performed: Yes Date of Procedure: 05/12/21 Procedure Start Time: Procedure Stop Time: Location of Patient: PreOp Indication: Acute Post-Operative Pain Sedation Type: Sedate with meaningful contact maintained Preparation: Sterile Dressing Position: Sitting Catheter: Indwelling Needle Guage: 18 Injectate: Test Dose Lidocaine1.5% w/1:200,000 epi Blood Aspirated: No Pain Paresthesia on Injection Noted: No Events: Uneventful and Well Tolerated (xylo 1.5% plus epi 3cc no adverse effect noted)
[2021-05-12] MEDS ORDERED: NALOXONE 0.4 MG/ML 1 ML VIAL IV PRN (09:56)
[2021-05-12] MEDS ORDERED: SUCCINYLCHOLINE CHLORIDE VIAL 200 MG/10 ML VIAL IV ONE (10:27)
[2021-05-12] MEDS ORDERED: ROCURONIUM 10 MG/ML (5 ML VIAL) IV ONE (10:27)
[2021-05-12] MEDS ORDERED: LIDOCAINE 1% INJ 10MG/ML (20 ML MDV) ONE (10:27)
[2021-05-12] MEDS ORDERED: ePHEDrine 50 MG/ML 1 ML VIAL ONE (10:27)
[2021-05-12] MEDS ORDERED: PROPOFOL 10 MG/ML 20 ML VIAL IV ONE (10:27)
[2021-05-12] MEDS ORDERED: NEOSTIGMINE 1 MG/ML 10 ML VIAL ONE (10:27)
[2021-05-12] MEDS ORDERED: MIDAZOLAM 2 MG/2 ML VIAL ONE (10:27)
[2021-05-12] MEDS ORDERED: KETAMINE 10 MG/ML 20 ML VIAL ONE (10:27)
[2021-05-12] MEDS ORDERED: GLYCOPYRROLATE 0.2 MG/ML 2 ML VIAL ONE (10:27)
[2021-05-12] MEDS ORDERED: fentaNYL (PF) 50 MCG/ML 2 ML AMP ONE (10:27)
--- NOTE | 2021-05-12 11:57 | P.OP ---
Date of Procedure: 05/12/21 Preoperative Diagnosis: History of perforated diverticulitis Postoperative Diagnosis: Diverticulitis Procedure(s) Performed: Low anterior resection Anesthesia: RAYMUNDO Surgeon: Colby Montaño Estimated Blood Loss (ml): 25 Pathology: other (Sigmoid colon) Condition: stable Disposition: PACU Indications for Procedure: Is a 25-year-old male who's had multiple episodes of diverticulitis. Patient recent had diverticulitis with microperforation and abscess. Description of Procedure: LDESCRIPTION OF PROCEDURE: The patient was placed on the operating table in the supine position. Patient received a general anesthesia. Patient was then placed in the dorsal lithotomy position. The patients abdomen was prepped and draped in the usual sterile fashion. Through a low midline incision, the abdomen was entered. The Erlinda retractor was placed in the wound. The stomach appeared normal. The small bowel appeared normal. The liver appeared normal. The right colon and transverse colon appeared normal. On the left colon, there was an extensive diverticulosis noted. The sigmoid colon was then mobilized by dividing the white line of Toldt with electrocautery. At this point, the proximal sigmoid colon was transected with a GI stapler after a window had been made in the mesentery. The distal sigmoid colon was then dissected. Mesentery was taken down between Reina clamps and ligated with #0 silk ties. At a point beyond the lesion, the bowel was then transected with a Proximate stapler. This was then removed. The splenic flexure was then taken down in order to provide adequate lengthening of the sigmoid colon. At this point, the auto purse-string suture device was placed across the proximal colon and fired. The colon was then opened. The 29 mm EEA anvil was then placed into the colon and then the purse-string was secured. The EEA stapler device was then placed in the patients anus and passed into the rectum. The nail for the EEA was then brought out through the distal rectum and then at tached to the anvil. The EEA stapler device was then fired. The anastomosis was inspected. There were 2 good donuts of tissue removed from the EEA stapler. The anastomosis was then tested under water and there was no air leak seen. At this point the abdomen was then irrigated. There was no bleeding seen. The fascia was then closed with double stranded #1 PDS. The skin was closed with nickie. The patient tolerated the procedure well.
[2021-05-12] MEDS ORDERED: METOCLOPRAMIDE 5 MG/ML 2 ML VIAL IVP PRN (11:58)
[2021-05-12] MEDS ORDERED: ONDANSETRON 4 MG/2 ML VIAL IVP PRN (11:58)
[2021-05-12] MEDS ORDERED: KETOROLAC 30 MG/ML 1 ML VIAL IVP PRN (11:58)
[2021-05-12] MEDS ORDERED: BENZOCAINE/MENTHOL LOZENG 1 EACH LOZENGE MUCOUS MEM PRN (11:58)
[2021-05-12] MEDS: ROPIVACAINE 250 MG, HYDROMORPHONE (PF) 5 MG in SODIUM CHLORIDE 0.9% 200 ML EPIDURAL PRN (12:14)
[2021-05-12 12:19] LABS: Glucose,Whole Blood 136 mg/dL (75-99)
[2021-05-12] MEDS ORDERED: fentaNYL (PF) 50 MCG/ML 2 ML AMP MISCELLANE ONE (13:12)
[2021-05-12 16:29] LABS: Glucose,Whole Blood 114 mg/dL (75-99)
[2021-05-12] MEDS: D5-0.45% NACL WITH KCL 20MEQ/L 1,000 ML IV SCH ×2 (16:30→23:25)
[2021-05-12] MEDS: HEPARIN SODIUM,PORCINE/PF 5,000 UNIT/0.5 ML SYRINGE SQ SCH ×2 (16:30→23:25)
[2021-05-12 20:46] LABS: Glucose,Whole Blood 160 mg/dL (75-99)
[2021-05-13] MEDS: ROPIVACAINE 250 MG, HYDROMORPHONE (PF) 5 MG in SODIUM CHLORIDE 0.9% 200 ML EPIDURAL PRN (05:47)
[2021-05-13 06:48] LABS: Glucose,Whole Blood 115 mg/dL (75-99)
[2021-05-13] MEDS: HEPARIN SODIUM,PORCINE/PF 5,000 UNIT/0.5 ML SYRINGE SQ SCH ×2 (08:04→16:27)
[2021-05-13] MEDS: D5-0.45% NACL WITH KCL 20MEQ/L 1,000 ML IV SCH ×2 (08:05→14:04)
[2021-05-13] MEDS: ALVIMOPAN 12 MG CAPSULE PO SCH ×2 (08:05→20:43)
--- NOTE | 2021-05-13 09:40 | P.PN ---
Progress Note - Text Progress Note Date: 05/13/21 (371) Anesthesia Postop day 1 Status post low anterior resection with epidural Day 2 Patient seen and examined. Doing well without complaint. VAS 1 out of 10. Increases to 9 out of 10 with movement. Comfortable at rest. No nausea vomiting or pruritus. Ropivacaine 0.1% with Dilaudid 20 mcg/mL at 10 mL an hour. Objective: Vital signs reviewed Lungs: Good chest excursion Abdomen: Appears nondistended Other: Epidural Site Intact without induration. Dressing intact Neuro: No apparent motor block. Sensory within normal limits. Assessment: Status post low anterior resection postop day #2 Plan: Continue current care with your medical management. Anticipate reevaluation tomorrow with discontinuation in 2 days. Possibly earlier at the request of surgery service.
--- NOTE | 2021-05-13 09:55 | P.CONS ---
History of Present Illness - Reason for Consult Consult date: 05/12/21 - History of Present Illness Ben Burnham, is a 25-year-old male well-known to my practice who was recently admitted to [facility] with abdominal pain patient had evidence of acute diverticulitis with evidence of microperforation he received IV antibiotic and was discharged home on a course of oral antibiotics patient was readmitted today by Dr. Montaño for low anterior resection of the sigmoid colon. Patient past medical history is significant for history of hypertension and history of [id number]-zovmckinm diabetes mellitus. Past Medical History Past Medical History: Diabetes Mellitus, Hypertension Additional Past Medical History / Comment(s): diverticulitis. INPT 04/08/21- 04/09/21 FOR PERFORATED DIVERTICULITIS History of Any Multi-Drug Resistant Organisms: None Reported Past Surgical History: No Surgical Hx Reported Additional Past Surgical History / Comment(s): HAVING COLONOSCOPY 05/11/21 Past Anesthesia/Blood Transfusion Reactions: Unable to Obtain Additional Past Anesthesia/Blood Transfusion Reaction / Comm: Pt has never had surgery. Smoking Status: Never smoker - Past Family History Father Additional Family Medical History / Comment(s): Father from a "bedsore" Mother Family Medical History: Cancer Additional Family Medical History / Comment(s): Mother from thyroid cancer. Medications and Allergies Home Medications Medication Instructions Recorded Confirmed Type lisinopriL [Zestril] 5 mg PO DAILY #30 tab 04/09/21 05/12/21 Rx metFORMIN HCL [Glucophage] 500 mg PO BID-W/MEALS #30 tab 04/09/21 05/12/21 Rx Allergies Allergy/AdvReac Type Severity Reaction Status Date / Time Penicillins Allergy Unknown Verified 05/12/21 08:50 Childhood tree nut [Nut] Allergy Anaphylaxis Verified 05/12/21 08:50 Physical Exam Vitals: Vital Signs Temp Pulse Resp BP BP Pulse Ox 05/12/21 12:15 53 L 14 128/60 100 05/12/21 12:01 98 F 70 14 129/59 100 05/12/21 09:30 60 16 132/67 98 05/12/21 08:45 98.1 F 91 16 136/74 95 Intake and Output 05/11/21 05/12/21 05/12/21 22:59 06:59 14:59 Intake Total 1000 Output Total 320 Balance 680 Intake: IV 1000 Output: Urine 250 Estimated Blood Loss 70 Other: Weight 161 kg In general patient is alert and oriented ?-3 in no distress HEENT head normocephalic and atraumatic Neck is supple no JVD no goiter no lymphadenopathy no carotid bruit Chest examination is clear to auscultation no crackles no wheezing Cardiac exam reveals regular heart sounds S1 and S2 no gallops no murmurs Abdomen is soft nontender no organomegaly with normal bowel sounds Extremity exam reveals no edema no cyanosis or clubbing Neurological examination reveals no gross focal deficits Results CBC & Chem 7: 05/12/21 09:10 Labs: Abnormal Lab Results - Last 24 Hours (Table) 05/12/21 Range/Units 12:18 POC Glucose (mg/dL) 136 H (75-99) mg/dL Assessment and Plan Plan: Recent admission with acute diverticulitis With micro-perforation, patient received course of antibiotic, patient admitted today by Dr. Montaño and underwent low anterior resection Underlying history of cam-eywmlux-bkcjlmwcp diabetes mellitus Underlying history of hypertension For DVT prophylaxis patient was started on subcu heparin Will recheck labs and follow-up in a.m.
--- NOTE | 2021-05-13 09:57 | P.PN ---
Subjective Progress Note Date: 05/13/21 Ben Burnham, is a 25-year-old male well-known to my practice who was recently admitted to [facility] with abdominal pain patient had evidence of acute diverticulitis with evidence of microperforation he received IV antibiotic and was discharged home on a course of oral antibiotics patient was readmitted today by Dr. Montaño for low anterior resection of the sigmoid colon. Patient past medical history is significant for history of hypertension and history of [id number]-iqdtvxpgm diabetes mellitus. On 05/13/2021 patient is currently postop day 1. Patient is alert and oriented 3. Current vitals temp 98.8, heart rate 81, respiratory 18, blood pressure 142/70 with a pulse ox of 96% on 2 L. Sliding scale coverage insulin has been ordered metformin currently on hold patient remains on clear liquid diet. Patient reported some nausea last night. Patient denies any chest pain or shortness breath. Patient denies nausea vomiting or diarrhea. Patient denies any urinary burning or frequency Objective - Vital Signs Vital signs: Vital Signs Temp 98.8 F 05/13/21 07:24 Pulse 81 05/13/21 07:24 Resp 18 05/13/21 07:24 BP 142/70 05/13/21 07:24 Pulse Ox 98 05/13/21 08:34 Intake & Output 05/12/21 05/13/21 05/13/21 18:59 06:59 18:59 Intake Total 1250 23.667 Output Total 870 1700 Balance 380 -1700 23.667 Weight 161 kg Intake: IV 1250 Intake, IV Titration 23.667 Amount Ropivacaine 250 mg 23.667 Hydromorphone (Pf) 5 mg In Sodium Chloride 0.9% 200 ml @ Per Protocol EPIDURAL .Q0M PRN Rx#: [id number] Output: Urine 800 1700 Estimated Blood Loss 70 Other: Voiding Method Indwelling Catheter Indwelling Catheter - Exam In general patient is alert and oriented ?-3 in no distress HEENT head normocephalic and atraumatic Neck is supple no JVD no goiter no lymphadenopathy no carotid bruit Chest examination is clear to auscultation no crackles no wheezing Cardiac exam reveals regular heart sounds S1 and S2 no gallops no murmurs Abdomen is soft nontender no organomegaly with normal bowel sounds Extremity exam reveals no edema no cyanosis or clubbing Neurological examination reveals no gross focal deficits - Labs CBC & Chem 7: 05/12/21 09:10 Labs: Abnormal Lab Results - Last 24 Hours (Table) 05/12/21 05/12/21 05/12/21 Range/Units 12:18 16:27 20:44 POC Glucose (mg/dL) 136 H 114 H 160 H (75-99) mg/dL 05/13/21 Range/Units 06:46 POC Glucose (mg/dL) 115 H (75-99) mg/dL Assessment and Plan Plan: Recent admission with acute diverticulitis With micro-perforation, patient received course of antibiotic, patient admitted today by Dr. Montaño and underwent low anterior resection on 05/12/2021 Underlying history of bcx-fkcifau-erfleqeqk diabetes mellitus. Metformin currently on hold. Sliding scale coverage ordered Underlying history of hypertension For DVT prophylaxis patient was started on subcu heparin Will recheck labs and follow-up in a.m.
[2021-05-13 10:00] LABS: African American GFR (CKD) 120.7 (60.0-200.0); Albumin 4.1 g/dL (3.8-4.9); Albumin/Globulin Ratio 1.86 (1.60-3.17); BUN/Creat Ratio 5.6 Ratio (12.00-20.00); Blood Urea Nitrogen 5.6 mg/dL (9.0-27.0); Calcium 8.9 mg/dL (8.7-10.3); Globulin 2.2 g/dL (1.6-3.3); Non-African American GFR(CKD) 104.1 (60.0-200.0); Potassium 4.6 mmol/L (3.5-5.5); Total Bilirubin 0.6 mg/dL (0.30-1.20); Total Protein 6.3 g/dL (6.2-8.2)
[2021-05-13 10:26] LABS: Basophils # (A) 0.01 X 10*3/uL (0.00-0.10); Basophils % (A) 0.1 %; Eosinophils # (A) 0.02 X 10*3/uL (0.04-0.35); Eosinophils % (A) 0.2 %; HCT 42.8 % (39.6-50.0); HGB 13.6 g/dL (13.0-17.0); Immature Grans, Automated 0.2 %; Lymphocytes # (A) 1.62 X 10*3/uL (0.90-5.00); Lymphocytes % (A) 17.6 %; MCH 29.4 pg (27.0-32.0); MCHC 31.8 g/dL (32.0-37.0); MCV 92.4 fL (80.0-97.0); Mean Platelet Volume 11.3 fL (9.5-12.2); Monocytes # (A) 0.91 X 10*3/uL (0.20-1.00); Monocytes % (A) 9.9 %; NRBC Per 100 WBC 0 /100 WBCS (0.0-0.0); Neutrophils # (A) 6.64 X 10*3/uL (1.80-7.70); Platelet Count 259 X 10*3/uL (140-440); RBC 4.63 X 10*6/uL (4.40-5.60); RDW 13.1 % (11.5-14.5); WBC 9.22 X 10*3/uL (4.50-10.00)
[2021-05-13 10:27] LABS: RBC Morphology NORMAL
[2021-05-13 11:17] LABS: Glucose,Whole Blood 110 mg/dL (75-99)
[2021-05-13] MEDS: INSULIN ASPART (NovoLOG) 100 UNIT/ML VIAL SQ SCH ×3 (11:32→20:37)
--- NOTE | 2021-05-13 12:39 | P.PN ---
Subjective Progress Note Date: 05/13/21 CHIEF COMPLAINT: History of perforated diverticulitis HISTORY OF PRESENT ILLNESS: Postop day #1 status post lower anterior resection. Patient has epidural place. He reports that his pain is controlled. Patient did have 2 episodes of vomiting yesterday. This is now resolved. Denies any flatus or bowel movement. Afebrile. WBC 9.22 hemoglobin 13.6 platelets 259 sodium 138 creatinine 1.0 PHYSICAL EXAM: VITAL SIGNS: Reviewed. GENERAL: Well-developed in no acute distress. HEENT: No sclera icterus. Extraocular movements grossly intact. Moist buccal mucosa. Head is atraumatic, normocephalic. ABDOMEN: Soft. Obese. Nondistended. Nontender. Incision site clean dry and intact. NEUROLOGIC: Alert and oriented. Cranial nerves II through XII grossly intact. ASSESSMENT: 1. History of perforated diverticulitis status post lower anterior resection PLAN: -Continue epidural for pain control -Continue full catheter -Continue clear liquid diet -Continue IV fluids -Continue Zofran as needed -DVT prophylaxis subcu heparin Physician Poultry Killer note has been reviewed by physician. Signing provider agrees with the documented findings, assessment, and plan of care. Objective - Vital Signs Vital signs: Vital Signs Temp 98.8 F 05/13/21 07:24 Pulse 81 05/13/21 07:24 Resp 18 05/13/21 07:24 BP 142/70 05/13/21 07:24 Pulse Ox 98 05/13/21 08:34 Intake & Output 05/12/21 05/13/21 05/13/21 18:59 06:59 18:59 Intake Total 1250 23.667 Output Total 870 1700 Balance 380 -1700 23.667 Weight 161 kg Intake: IV 1250 Intake, IV Titration 23.667 Amount Ropivacaine 250 mg 23.667 Hydromorphone (Pf) 5 mg In Sodium Chloride 0.9% 200 ml @ Per Protocol EPIDURAL .Q0M PRN Rx#: [id number] Output: Urine 800 1700 Estimated Blood Loss 70 Other: Voiding Method Indwelling Catheter Indwelling Catheter - Labs CBC & Chem 7: 05/13/21 05:43 05/13/21 05:43 Labs: Abnormal Lab Results - Last 24 Hours (Table) 05/12/21 05/12/21 05/13/21 Range/Units 16:27 20:44 05:43 MCHC 31.8 L (32.0-37.0) g/dL Eosinophils # 0.02 L (0.04-0.35) X 10*3/uL BUN (9.0-27.0) mg/dL BUN/Creatinine Ratio (12.00-20.00) Ratio Glucose (70-110) mg/dL POC Glucose (mg/dL) 114 H 160 H (75-99) mg/dL 05/13/21 05/13/21 05/13/21 Range/Units 05:43 06:46 11:15 MCHC (32.0-37.0) g/dL Eosinophils # (0.04-0.35) X 10*3/uL BUN 5.6 L (9.0-27.0) mg/dL BUN/Creatinine Ratio 5.60 L (12.00-20.00) Ratio Glucose 121 H (70-110) mg/dL POC Glucose (mg/dL) 115 H 110 H (75-99) mg/dL
[2021-05-13 16:16] LABS: Glucose,Whole Blood 100 mg/dL (75-99)
[2021-05-13] MEDS: LACTATED RINGERS 1,000 ML IV SCH (16:29)
[2021-05-13 20:35] LABS: Glucose,Whole Blood 122 mg/dL (75-99)
[2021-05-13] MEDS: ACETAMINOPHEN TAB 325 MG TAB PO PRN (20:42)
[2021-05-14] MEDS: D5-0.45% NACL WITH KCL 20MEQ/L 1,000 ML IV SCH ×4 (00:43→21:03)
[2021-05-14] MEDS: HEPARIN SODIUM,PORCINE/PF 5,000 UNIT/0.5 ML SYRINGE SQ SCH ×4 (00:44→21:03)
[2021-05-14] MEDS: ROPIVACAINE 250 MG, HYDROMORPHONE (PF) 5 MG in SODIUM CHLORIDE 0.9% 200 ML EPIDURAL PRN (03:13)
[2021-05-14 06:48] LABS: Glucose,Whole Blood 98 mg/dL (75-99)
[2021-05-14] MEDS: INSULIN ASPART (NovoLOG) 100 UNIT/ML VIAL SQ SCH ×4 (07:11→21:04)
[2021-05-14] MEDS: ALVIMOPAN 12 MG CAPSULE PO SCH ×2 (08:09→21:03)
[2021-05-14] MEDS: lisinopriL 5 MG TAB PO SCH (08:10)
[2021-05-14 09:15] LABS: Basophils # (A) 0.03 X 10*3/uL (0.00-0.10); Basophils % (A) 0.4 %; Eosinophils % (A) 1.3 %; HCT 41.1 % (39.6-50.0); HGB 12.9 g/dL (13.0-17.0); Immature Grans, Automated 0.3 %; Lymphocytes # (A) 1.72 X 10*3/uL (0.90-5.00); Lymphocytes % (A) 22.7 %; MCH 29.7 pg (27.0-32.0); MCHC 31.4 g/dL (32.0-37.0); MCV 94.5 fL (80.0-97.0); Mean Platelet Volume 10.3 fL (9.5-12.2); Monocytes # (A) 0.83 X 10*3/uL (0.20-1.00); Monocytes % (A) 10.9 %; NRBC Per 100 WBC 0 /100 WBCS (0.0-0.0); Neutrophils # (A) 4.89 X 10*3/uL (1.80-7.70); Neutrophils % (A) 64.4 %; Platelet Count 320 X 10*3/uL (140-440); RBC 4.35 X 10*6/uL (4.40-5.60); RDW 13.2 % (11.5-14.5); WBC 7.59 X 10*3/uL (4.50-10.00)
[2021-05-14 09:27] LABS: African American GFR (CKD) 120.7 (60.0-200.0); Albumin 3.8 g/dL (3.8-4.9); Albumin/Globulin Ratio 1.65 (1.60-3.17); Anion Gap 11.4 mmol/L (10.00-18.00); BUN/Creat Ratio 5.1 Ratio (12.00-20.00); Blood Urea Nitrogen 5.1 mg/dL (9.0-27.0); Carbon Dioxide 26.6 mmol/L (20.0-27.5); Globulin 2.3 g/dL (1.6-3.3); Non-African American GFR(CKD) 104.1 (60.0-200.0); Potassium 4.4 mmol/L (3.5-5.5); Total Bilirubin 0.7 mg/dL (0.30-1.20); Total Protein 6.1 g/dL (6.2-8.2)
--- NOTE | 2021-05-14 10:31 | P.PN ---
Progress Note - Text Progress Note Date: 05/14/21 Anesthesia Postop day #2 Status post low anterior resection with epidural day #3 Patient seen and examined. Doing well. Pain appears well, controlled at rest as patient was sleeping very well upon arrival. Upon awakening states his pains of 8 out of 10. Respiratory rate was 12. Appears tolerable No nausea vomiting. Ropivacaine 0.1% with Dilaudid 20 mcg/mL at 10 mL an hour. Objective: Vital signs reviewed Lungs: Good chest excursion Abdomen: Appears nondistended Other: Epidural Site Intact without induration. Dressing intact Neuro: No apparent motor block. Sensory within normal limits. Assessment: Status post low anterior resection postop day #2 Plan: Continue current care with your medical management. Anticipate discontinued catheter tomorrow. Platelets were 2:30. Only heparin subcu every 8 hours. Will need to hold 4-6 hours before epidural pull.
[2021-05-14 11:34] LABS: Glucose,Whole Blood 85 mg/dL (75-99)
--- NOTE | 2021-05-14 13:40 | P.PN ---
Subjective Progress Note Date: 05/14/21 CHIEF COMPLAINT: History of perforated diverticulitis HISTORY OF PRESENT ILLNESS: Postop day #2 status post lower anterior resection. Patient has epidural place. He reports that his pain is controlled. He denies any nausea or vomiting. Denies any flatus or BM. He did have a low-grade temp of 100.1 last night with heart rate 112. Patient is not really moving or getting out of bed. WBC is 7.59 hemoglobin 12.9 Patient seen and examined with Dr. Montaño PHYSICAL EXAM: VITAL SIGNS: Reviewed. GENERAL: Well-developed in no acute distress. HEENT: No sclera icterus. Extraocular movements grossly intact. Moist buccal mucosa. Head is atraumatic, normocephalic. ABDOMEN: Soft. Obese. Nondistended. Nontender. Incision site clean, dry and intact. 2 very small areas of opening is noted on incision. No drainage. NEUROLOGIC: Alert and oriented. Cranial nerves II through XII grossly intact. ASSESSMENT: 1. History of perforated diverticulitis status post lower anterior resection 2. Possible atelectasis contributing to low-grade temp PLAN: -Epidural and Angel catheter to be discontinued tomorrow -Continue clear liquid diet -Continue IV fluids -Continue Zofran as needed -Encourage patient is incentive spirometer -Encourage patient to ambulate -Abdominal binder ordered -DVT prophylaxis subcu heparin Physician Research Physicist note has been reviewed by physician. Signing provider agrees with the documented findings, assessment, and plan of care. Objective - Vital Signs Vital signs: Vital Signs Temp 98.7 F 05/14/21 07:00 Pulse 100 05/14/21 07:00 Resp 18 05/14/21 07:15 BP 120/65 05/14/21 07:00 Pulse Ox 92 L 05/14/21 07:00 Intake & Output 05/13/21 05/14/21 05/14/21 18:59 06:59 18:59 Intake Total 23.667 190.667 Output Total 450 750 Balance -426.333 -559.333 Intake: Intake, IV Titration 23.667 190.667 Amount Ropivacaine 250 mg 23.667 190.667 Hydromorphone (Pf) 5 mg In Sodium Chloride 0.9% 200 ml @ Per Protocol EPIDURAL .Q0M PRN Rx#: [id number] Output: Urine 450 750 Other: Voiding Method Indwelling Catheter Indwelling Catheter - Labs CBC & Chem 7: 05/14/21 04:30 05/14/21 04:30 Labs: Abnormal Lab Results - Last 24 Hours (Table) 05/13/21 05/13/21 05/14/21 Range/Units 16:13 20:34 04:30 RBC 4.35 L (4.40-5.60) X 10*6/uL Hgb 12.9 L (13.0-17.0) g/dL MCHC 31.4 L (32.0-37.0) g/dL BUN (9.0-27.0) mg/dL BUN/Creatinine Ratio (12.00-20.00) Ratio Glucose (70-110) mg/dL POC Glucose (mg/dL) 100 H 122 H (75-99) mg/dL Total Protein (6.2-8.2) g/dL 05/14/21 Range/Units 04:30 RBC (4.40-5.60) X 10*6/uL Hgb (13.0-17.0) g/dL MCHC (32.0-37.0) g/dL BUN 5.1 L (9.0-27.0) mg/dL BUN/Creatinine Ratio 5.10 L (12.00-20.00) Ratio Glucose 113 H (70-110) mg/dL POC Glucose (mg/dL) (75-99) mg/dL Total Protein 6.1 L (6.2-8.2) g/dL
[2021-05-14 16:18] LABS: Glucose,Whole Blood 95 mg/dL (75-99)
[2021-05-14] MEDS: LACTATED RINGERS 1,000 ML IV SCH (16:57)
--- NOTE | 2021-05-14 19:27 | P.PN ---
Subjective Progress Note Date: 05/14/21 Ben Burnham, is a 25-year-old male well-known to my practice who was recently admitted to [facility] with abdominal pain patient had evidence of acute diverticulitis with evidence of microperforation he received IV antibiotic and was discharged home on a course of oral antibiotics patient was readmitted today by Dr. Montaño for low anterior resection of the sigmoid colon. Patient past medical history is significant for history of hypertension and history of qpe-btsglsj-fyexoelcu diabetes mellitus. On 05/13/2021 patient is currently postop day 1. Patient is alert and oriented 3. Current vitals temp 98.8, heart rate 81, respiratory 18, blood pressure 142/70 with a pulse ox of 96% on 2 L. Sliding scale coverage insulin has been ordered metformin currently on hold patient remains on clear liquid diet. Patient reported some nausea last night. Patient denies any chest pain or shortness breath. Patient denies nausea vomiting or diarrhea. Patient denies any urinary burning or frequency On 05/14/2021 patient was seen and examined on the medical floor he is alert and oriented 3 in no apparent distress his postoperative day #2 status post lower anterior resection, patient still has epidural catheter and Angel catheter, there is no fever or chills no headache or dizziness no chest pain no shortness of breath no cough no nausea or vomiting no abdominal pain no diarrhea and no urinary symptoms Vital exam reveals a temperature of 98.6 pulse 100 respiration 18 blood pressure 120/65 pulse ox 92% on room air White blood count 7.59 hemoglobin 12.9 platelet count 320 sodium 140 potassium 4.4 chloride 102 CO2 26 BUN 5.1 creatinine 1.0 Objective - Vital Signs Vital signs: Vital Signs Temp 98.6 F 05/14/21 13:21 Pulse 124 H 05/14/21 13:21 Resp 18 05/14/21 13:21 BP 150/61 05/14/21 13:21 Pulse Ox 96 05/14/21 13:21 Intake & Output 05/14/21 05/14/21 05/15/21 06:59 18:59 06:59 Intake Total 190.667 Output Total 750 500 Balance -559.333 -500 Intake: Intake, IV Titration 190.667 Amount Ropivacaine 250 mg 190.667 Hydromorphone (Pf) 5 mg In Sodium Chloride 0.9% 200 ml @ Per Protocol EPIDURAL .Q0M PRN Rx#: [id number] Output: Urine 750 500 Other: Voiding Method Indwelling Catheter - Exam In general patient is alert and oriented ?-3 in no distress HEENT head normocephalic and atraumatic Neck is supple no JVD no goiter no lymphadenopathy no carotid bruit Chest examination is clear to auscultation no crackles no wheezing Cardiac exam reveals regular heart sounds S1 and S2 no gallops no murmurs Abdomen is soft nontender no organomegaly with normal bowel sounds Extremity exam reveals no edema no cyanosis or clubbing Neurological examination reveals no gross focal deficits - Labs CBC & Chem 7: 05/14/21 04:30 05/14/21 04:30 Labs: Abnormal Lab Results - Last 24 Hours (Table) 05/13/21 05/14/21 05/14/21 Range/Units 20:34 04:30 04:30 RBC 4.35 L (4.40-5.60) X 10*6/uL Hgb 12.9 L (13.0-17.0) g/dL MCHC 31.4 L (32.0-37.0) g/dL BUN 5.1 L (9.0-27.0) mg/dL BUN/Creatinine Ratio 5.10 L (12.00-20.00) Ratio Glucose 113 H (70-110) mg/dL POC Glucose (mg/dL) 122 H (75-99) mg/dL Total Protein 6.1 L (6.2-8.2) g/dL Assessment and Plan Plan: Recent admission with acute diverticulitis With micro-perforation, patient received course of antibiotic, patient admitted today by Dr. Montaño and underwent low anterior resection on 05/12/2021 Underlying history of foc-qaqethv-ehqhfrwek diabetes mellitus. Metformin currently on hold. Sliding scale coverage ordered Underlying history of hypertension For DVT prophylaxis patient was started on subcu heparin Will recheck labs and follow-up in a.m.
[2021-05-14] MEDS: ACETAMINOPHEN TAB 325 MG TAB PO PRN (21:04)
[2021-05-14 21:05] LABS: Glucose,Whole Blood 105 mg/dL (75-99)
[2021-05-15] MEDS: ROPIVACAINE 250 MG, HYDROMORPHONE (PF) 5 MG in SODIUM CHLORIDE 0.9% 200 ML EPIDURAL PRN (00:51)
[2021-05-15] MEDS: D5-0.45% NACL WITH KCL 20MEQ/L 1,000 ML IV SCH (06:07)
[2021-05-15 06:53] LABS: Glucose,Whole Blood 113 mg/dL (75-99)
[2021-05-15] MEDS: INSULIN ASPART (NovoLOG) 100 UNIT/ML VIAL SQ SCH ×4 (07:15→21:20)
[2021-05-15] MEDS: ALVIMOPAN 12 MG CAPSULE PO SCH ×2 (07:21→21:40)
[2021-05-15] MEDS: lisinopriL 5 MG TAB PO SCH (07:21)
[2021-05-15] MEDS: HEPARIN SODIUM,PORCINE/PF 5,000 UNIT/0.5 ML SYRINGE SQ SCH ×3 (07:22→21:40)
[2021-05-15 09:16] LABS: Basophils # (A) 0.02 X 10*3/uL (0.00-0.10); Basophils % (A) 0.3 %; Eosinophils # (A) 0.18 X 10*3/uL (0.04-0.35); Eosinophils % (A) 2.6 %; HCT 40.3 % (39.6-50.0); Immature Grans, Automated 0.3 %; Lymphocytes # (A) 1.58 X 10*3/uL (0.90-5.00); Lymphocytes % (A) 22.5 %; MCH 29.5 pg (27.0-32.0); MCHC 32.3 g/dL (32.0-37.0); MCV 91.4 fL (80.0-97.0); Mean Platelet Volume 10.4 fL (9.5-12.2); Monocytes # (A) 0.65 X 10*3/uL (0.20-1.00); Monocytes % (A) 9.3 %; NRBC Per 100 WBC 0 /100 WBCS (0.0-0.0); Neutrophils # (A) 4.57 X 10*3/uL (1.80-7.70); Platelet Count 312 X 10*3/uL (140-440); RBC 4.41 X 10*6/uL (4.40-5.60); RDW 12.8 % (11.5-14.5); WBC 7.02 X 10*3/uL (4.50-10.00)
[2021-05-15 09:17] LABS: African American GFR (CKD) 143.9 (60.0-200.0); Albumin 3.8 g/dL (3.8-4.9); Albumin/Globulin Ratio 1.58 (1.60-3.17); Anion Gap 12.1 mmol/L (10.00-18.00); BUN/Creat Ratio 6.63 Ratio (12.00-20.00); Blood Urea Nitrogen 5.3 mg/dL (9.0-27.0); Calcium 8.9 mg/dL (8.7-10.3); Carbon Dioxide 24.9 mmol/L (20.0-27.5); Globulin 2.4 g/dL (1.6-3.3); Non-African American GFR(CKD) 124.2 (60.0-200.0); Potassium 4.3 mmol/L (3.5-5.5); Total Bilirubin 0.7 mg/dL (0.30-1.20); Total Protein 6.2 g/dL (6.2-8.2)
--- NOTE | 2021-05-15 09:38 | P.PN ---
Subjective Progress Note Date: 05/15/21 Ben Burnham, is a 25-year-old male well-known to my practice who was recently admitted to [facility] with abdominal pain patient had evidence of acute diverticulitis with evidence of microperforation he received IV antibiotic and was discharged home on a course of oral antibiotics patient was readmitted today by Dr. Montaño for low anterior resection of the sigmoid colon. Patient past medical history is significant for history of hypertension and history of kmu-xnojcga-vbwnmmzvf diabetes mellitus. On 05/13/2021 patient is currently postop day 1. Patient is alert and oriented 3. Current vitals temp 98.8, heart rate 81, respiratory 18, blood pressure 142/70 with a pulse ox of 96% on 2 L. Sliding scale coverage insulin has been ordered metformin currently on hold patient remains on clear liquid diet. Patient reported some nausea last night. Patient denies any chest pain or shortness breath. Patient denies nausea vomiting or diarrhea. Patient denies any urinary burning or frequency On 05/14/2021 patient was seen and examined on the medical floor he is alert and oriented 3 in no apparent distress his postoperative day #2 status post lower anterior resection, patient still has epidural catheter and Angel catheter, there is no fever or chills no headache or dizziness no chest pain no shortness of breath no cough no nausea or vomiting no abdominal pain no diarrhea and no urinary symptoms Vital exam reveals a temperature of 98.6 pulse 100 respiration 18 blood pressure 120/65 pulse ox 92% on room air White blood count 7.59 hemoglobin 12.9 platelet count 320 sodium 140 potassium 4.4 chloride 102 CO2 26 BUN 5.1 creatinine 1.0 On 05/15/2021 patient is alert and oriented 3. Patient is currently postop day 3. Diet to be advanced to full liquid per surgical services. Epidural removed. Angel catheter to be removed. Current vitals temp 98.0, blood pressure 128/86 pulse ox 98% on room air. Patient denies chest pain or shortness of breath. Patient denies nausea vomiting or diarrhea. Patient denies any urinary burning or frequency. Incentive spirometer encouraged Objective - Vital Signs Vital signs: Vital Signs Temp 97.8 F 05/15/21 07:51 Pulse 89 05/15/21 07:51 Resp 15 05/15/21 02:52 BP 128/86 05/15/21 07:21 Pulse Ox 96 05/15/21 07:51 Intake & Output 05/14/21 05/15/21 05/15/21 18:59 06:59 18:59 Intake Total 216.333 83.667 Output Total 500 1300 Balance -500 -1083.667 83.667 Intake: Intake, IV Titration 216.333 83.667 Amount Ropivacaine 250 mg 216.333 83.667 Hydromorphone (Pf) 5 mg In Sodium Chloride 0.9% 200 ml @ Per Protocol EPIDURAL .Q0M PRN Rx#: [id number] Output: Urine 500 1300 Other: Voiding Method Indwelling Catheter Indwelling Catheter # Bowel Movements 0 - Exam In general patient is alert and oriented ?-3 in no distress HEENT head normocephalic and atraumatic Neck is supple no JVD no goiter no lymphadenopathy no carotid bruit Chest examination is clear to auscultation no crackles no wheezing Cardiac exam reveals regular heart sounds S1 and S2 no gallops no murmurs Abdomen is soft nontender no organomegaly with normal bowel sounds Extremity exam reveals no edema no cyanosis or clubbing Neurological examination reveals no gross focal deficits - Labs CBC & Chem 7: 05/15/21 05:46 05/15/21 05:46 Labs: Abnormal Lab Results - Last 24 Hours (Table) 05/14/21 05/15/21 05/15/21 Range/Units 20:45 05:46 06:52 BUN 5.3 L (9.0-27.0) mg/dL BUN/Creatinine Ratio 6.63 L (12.00-20.00) Ratio POC Glucose (mg/dL) 105 H 113 H (75-99) mg/dL Albumin/Globulin Ratio 1.58 L (1.60-3.17) g/dL Assessment and Plan Plan: Recent admission with acute diverticulitis With micro-perforation, patient received course of antibiotic, patient admitted today by Dr. Montaño and underwent low anterior resection on 05/12/2021 Underlying history of ary-vwdwmqv-flulupeul diabetes mellitus. Metformin currently on hold. Sliding scale coverage ordered Underlying history of hypertension For DVT prophylaxis patient was started on subcu heparin Will recheck labs and follow-up in a.m.
--- NOTE | 2021-05-15 10:08 | P.PN ---
Progress Note - Text 05/15/20 656am 85-year-old male status post low anterior resection by Dr. Montaño. Patient has an epidural catheter with a VAS of 1 dry and intact with no sensory deficit to DC the epidural catheter
[2021-05-15] MEDS ORDERED: HYDROmorphone 1 MG/ML 1 ML SYRINGE IVP PRN (11:07)
--- NOTE | 2021-05-15 11:20 | P.PN ---
Subjective Progress Note Date: 05/15/21 CHIEF COMPLAINT: History of perforated diverticulitis HISTORY OF PRESENT ILLNESS: Postop day #3 status post lower anterior resection. Patient's epidural fluid catheter scheduled to be discontinued today. He is having flatus. He has been up to ambulate. Denies any bowel movement. Afebrile. Tolerating clear liquids. WBC 7.02 hemoglobin 13 platelets 312 Patient seen and examined with Dr. Montaño PHYSICAL EXAM: VITAL SIGNS: Reviewed. GENERAL: Well-developed in no acute distress. HEENT: No sclera icterus. Extraocular movements grossly intact. Moist buccal mucosa. Head is atraumatic, normocephalic. ABDOMEN: Soft. Obese. Nondistended. Nontender. NEUROLOGIC: Alert and oriented. Cranial nerves II through XII grossly intact. ASSESSMENT: 1. History of perforated diverticulitis status post lower anterior resection 2. Possible atelectasis contributing to low-grade temp PLAN: -Epidural and Angel catheter to be discontinued today -Add IV Dilaudid and Hurricane for pain control -Advance diet to full liquids -Hep-Lock IV fluids -Encourage patient is incentive spirometer -Encourage patient to ambulate -DVT prophylaxis subcu heparin and GI prophylaxis Pepcid Physician Wire Bender Hand note has been reviewed by physician. Signing provider agrees with the documented findings, assessment, and plan of care. Objective - Vital Signs Vital signs: Vital Signs Temp 97.8 F 05/15/21 07:51 Pulse 89 05/15/21 07:51 Resp 15 05/15/21 08:00 BP 128/86 05/15/21 07:21 Pulse Ox 96 05/15/21 07:51 Intake & Output 05/14/21 05/15/21 05/15/21 18:59 06:59 18:59 Intake Total 216.333 83.667 Output Total 500 1300 Balance -500 -1083.667 83.667 Intake: Intake, IV Titration 216.333 83.667 Amount Ropivacaine 250 mg 216.333 83.667 Hydromorphone (Pf) 5 mg In Sodium Chloride 0.9% 200 ml @ Per Protocol EPIDURAL .Q0M PRN Rx#: [id number] Output: Urine 500 1300 Other: Voiding Method Indwelling Catheter Indwelling Catheter Indwelling Catheter # Bowel Movements 0 - Labs CBC & Chem 7: 05/15/21 05:46 05/15/21 05:46 Labs: Abnormal Lab Results - Last 24 Hours (Table) 05/14/21 05/15/21 05/15/21 Range/Units 20:45 05:46 06:52 BUN 5.3 L (9.0-27.0) mg/dL BUN/Creatinine Ratio 6.63 L (12.00-20.00) Ratio POC Glucose (mg/dL) 105 H 113 H (75-99) mg/dL Albumin/Globulin Ratio 1.58 L (1.60-3.17) g/dL
[2021-05-15 11:42] LABS: Glucose,Whole Blood 93 mg/dL (75-99)
[2021-05-15] MEDS: HYDROcodone/APAP 5-325MG 1 EACH TAB PO PRN (15:31)
[2021-05-15 16:30] LABS: Glucose,Whole Blood 90 mg/dL (75-99)
[2021-05-15 20:45] LABS: Glucose,Whole Blood 89 mg/dL (75-99)
[2021-05-15 21:39] VITALS: RESP 16
[2021-05-15] MEDS: FAMOTIDINE 20 MG TAB PO SCH (21:40)
[2021-05-16] MEDS: ACETAMINOPHEN TAB 325 MG TAB PO PRN (01:15)
[2021-05-16 02:39] VITALS: PULSE 83
[2021-05-16 06:58] LABS: Glucose,Whole Blood 87 mg/dL (75-99)
[2021-05-16] MEDS: INSULIN ASPART (NovoLOG) 100 UNIT/ML VIAL SQ SCH ×2 (07:11→11:48)
[2021-05-16] MEDS: lisinopriL 5 MG TAB PO SCH (07:58)
[2021-05-16] MEDS: HEPARIN SODIUM,PORCINE/PF 5,000 UNIT/0.5 ML SYRINGE SQ SCH (07:59)
[2021-05-16] MEDS: ALVIMOPAN 12 MG CAPSULE PO SCH (07:59)
[2021-05-16] MEDS: FAMOTIDINE 20 MG TAB PO SCH (07:59)
[2021-05-16] MEDS: HYDROcodone/APAP 5-325MG 1 EACH TAB PO PRN (08:00)
[2021-05-16 08:34] LABS: Basophils % (A) 0 %; Eosinophils # (A) 0.2 k/uL (0-0.7); Eosinophils % (A) 3 %; HGB 13.4 gm/dL (13.0-17.5); Lymphocytes # (A) 1.3 k/uL (1.0-4.8); Lymphocytes % (A) 19 %; MCH 30.7 pg (25.0-35.0); MCHC 33.6 g/dL (31.0-37.0); MCV 91.5 fL (80.0-100.0); Mean Platelet Volume 8.9; Monocytes # (A) 0.4 k/uL (0-1.0); Monocytes % (A) 5 %; Neutrophils % (A) 72 %; Platelet Count 343 k/uL (150-450); RBC 4.37 m/uL (4.30-5.90); RDW 12.8 % (11.5-15.5); WBC 6.9 k/uL (3.8-10.6)
[2021-05-16 08:45] LABS: ALT 27 U/L (4-49); AST 32 U/L (17-59); African American GFR (CKD) >90 (>60 ml/min/1.73 sqM); Albumin 3.4 g/dL (3.5-5.0); Alkaline Phosphatase 85 U/L (38-126); Anion Gap 9 mmol/L; Blood Urea Nitrogen 7 mg/dL (9-20); Calcium 8.8 mg/dL (8.4-10.2); Carbon Dioxide 25 mmol/L (22-30); Chloride 104 mmol/L (98-107); Globulin 3.3 g/dL; Glucose 149 mg/dL (74-99); Non-African American GFR(CKD) >90 (>60 ml/min/1.73 sqM); Potassium 3.9 mmol/L (3.5-5.1); Sodium 138 mmol/L (137-145); Total Bilirubin 0.9 mg/dL (0.2-1.3); Total Protein 6.7 g/dL (6.3-8.2)
[2021-05-16 09:35] VITALS: BP 163/107; TEMP 97.9
--- NOTE | 2021-05-16 11:04 | P.DS ---
Providers Date of admission: 05/12/21 08:23 Expected date of discharge: 05/16/21 Attending physician: Colby Montaño Consults: 05/12/21 11:58 Consult Physician Routine Consulting Provider: Samuel Griggs Consult Reason/Comments: Medical management Do you want consulting provider notified?: Yes Primary care physician: Samuel Anson [facility] Course: Is a 25-year-old male who underwent low anterior resection for diverticulitis. Patient's postoperative stay was unremarkable. Please see hospital chart for details. Procedures: Low anterior resection Patient Condition at Discharge: Good Plan - Discharge Summary Discharge Rx Participant: No New Discharge Prescriptions: New Docusate [Colace] 100 mg PO BID #20 capsule Ibuprofen [Motrin] 600 mg PO Q6HR PRN #40 tab PRN Reason: Pain oxyCODONE HCL [OxyIR] 5 mg PO Q6H PRN 3 Days #10 tab PRN Reason: Pain Acetaminophen Tab [Tylenol] 650 mg PO Q6H #30 tab No Action metFORMIN HCL [Glucophage] 500 mg PO BID-W/MEALS #30 tab lisinopriL [Zestril] 5 mg PO DAILY #30 tab Discharge Medication List lisinopriL [Zestril] 5 mg PO DAILY #30 tab 04/09/21 [Rx] metFORMIN HCL [Glucophage] 500 mg PO BID-W/MEALS #30 tab 04/09/21 [Rx] Acetaminophen Tab [Tylenol] 650 mg PO Q6H #30 tab 05/16/21 [Rx] Docusate [Colace] 100 mg PO BID #20 capsule 05/16/21 [Rx] Ibuprofen [Motrin] 600 mg PO Q6HR PRN #40 tab 05/16/21 [Rx] oxyCODONE HCL [OxyIR] 5 mg PO Q6H PRN 3 Days #10 tab 05/16/21 [Rx] Follow up Appointment(s)/Referral(s): [facility], [NON-STAFF] - ([facility] will call you to schedule your in home nursing visits. ) Activity/Diet/Wound Care/Special Instructions: Social [employer] - , [address], [place] [address]. Call or visit ssa.gov to inquire about disability.
[2021-05-16 11:48] LABS: Glucose,Whole Blood 94 mg/dL (75-99)
--- NOTE | 2021-05-16 12:01 | P.PN ---
Subjective Progress Note Date: 05/16/21 Ben Burnham, is a 25-year-old male well-known to my practice who was recently admitted to [facility] with abdominal pain patient had evidence of acute diverticulitis with evidence of microperforation he received IV antibiotic and was discharged home on a course of oral antibiotics patient was readmitted today by Dr. Montaño for low anterior resection of the sigmoid colon. Patient past medical history is significant for history of hypertension and history of otp-dldkabt-mwytuzgdm diabetes mellitus. On 05/13/2021 patient is currently postop day 1. Patient is alert and oriented 3. Current vitals temp 98.8, heart rate 81, respiratory 18, blood pressure 142/70 with a pulse ox of 96% on 2 L. Sliding scale coverage insulin has been ordered metformin currently on hold patient remains on clear liquid diet. Patient reported some nausea last night. Patient denies any chest pain or shortness breath. Patient denies nausea vomiting or diarrhea. Patient denies any urinary burning or frequency On 05/14/2021 patient was seen and examined on the medical floor he is alert and oriented 3 in no apparent distress his postoperative day #2 status post lower anterior resection, patient still has epidural catheter and Angel catheter, there is no fever or chills no headache or dizziness no chest pain no shortness of breath no cough no nausea or vomiting no abdominal pain no diarrhea and no urinary symptoms Vital exam reveals a temperature of 98.6 pulse 100 respiration 18 blood pressure 120/65 pulse ox 92% on room air White blood count 7.59 hemoglobin 12.9 platelet count 320 sodium 140 potassium 4.4 chloride 102 CO2 26 BUN 5.1 creatinine 1.0 On 05/15/2021 patient is alert and oriented 3. Patient is currently postop day 3. Diet to be advanced to full liquid per surgical services. Epidural removed. Angel catheter to be removed. Current vitals temp 98.0, blood pressure 128/86 pulse ox 98% on room air. Patient denies chest pain or shortness of breath. Patient denies nausea vomiting or diarrhea. Patient denies any urinary burning or frequency. Incentive spirometer encouraged On 05/16/2021 patient was seen and examined on the medical floor he is alert and oriented 3 in no apparent distress there is no fever or chills no headache or dizziness no chest pain no shortness of breath no cough no nausea or vomiting no abdominal pain no diarrhea and no urinary symptoms. Patient is tolerating diet well he is ambulating without difficulty, plan per surgery is to discharge to home today. Patient is clear from medical standpoint for discharge. Objective - Vital Signs Vital signs: Vital Signs Temp 97.9 F 05/16/21 07:35 Pulse 83 05/16/21 08:01 Resp 16 05/16/21 08:01 BP 163/107 05/16/21 07:35 Pulse Ox 97 05/16/21 08:46 Intake & Output 05/15/21 05/16/21 05/16/21 18:59 06:59 18:59 Intake Total 83.667 Balance 83.667 Intake: Intake, IV Titration 83.667 Amount Ropivacaine 250 mg 83.667 Hydromorphone (Pf) 5 mg In Sodium Chloride 0.9% 200 ml @ Per Protocol EPIDURAL .Q0M PRN Rx#: [id number] Other: Voiding Method Indwelling Catheter Toilet # Voids 1 # Bowel Movements 0 - Exam In general patient is alert and oriented ?-3 in no distress HEENT head normocephalic and atraumatic Neck is supple no JVD no goiter no lymphadenopathy no carotid bruit Chest examination is clear to auscultation no crackles no wheezing Cardiac exam reveals regular heart sounds S1 and S2 no gallops no murmurs Abdomen is soft nontender no organomegaly with normal bowel sounds Extremity exam reveals no edema no cyanosis or clubbing Neurological examination reveals no gross focal deficits - Labs CBC & Chem 7: 05/16/21 08:17 05/16/21 08:17 Labs: Abnormal Lab Results - Last 24 Hours (Table) 05/16/21 Range/Units 08:17 BUN 7 L (9-20) mg/dL Glucose 149 H (74-99) mg/dL Albumin 3.4 L (3.5-5.0) g/dL Assessment and Plan Plan: Recent admission with acute diverticulitis With micro-perforation, patient received course of antibiotic, patient admitted today by Dr. Montaño and underwent low anterior resection on 05/12/2021 Underlying history of wxl-bmvdwtr-txisfehxa diabetes mellitus. Metformin currently on hold. Sliding scale coverage ordered Underlying history of hypertension For DVT prophylaxis patient was started on subcu heparin Will recheck labs and follow-up in a.m.
[2021-05-16 16:37] LABS: Glucose,Whole Blood 85 mg/dL (75-99)
== END 2021-05-16 17:03 | disposition home health service (06) | DRG 330 ==
LOC: 2ORMAIN 08:23 → 4SSUR 12:44
PROVIDERS: ADMIT Surgery; ATTEND Surgery
PROC: 0DBN0ZZ Excision of Sigmoid Colon, Open Approach (ICD-10-PCS; principal; 2021-05-12 09:55)
DX: K57.20 Diverticulitis of large intestine with perforation and abscess without bleeding (principal); Z68.42 Body mass index [BMI] 45.0-49.9, adult; I10 Essential (primary) hypertension; Z80.8 Family history of malignant neoplasm of other organs or systems; E66.01 Morbid (severe) obesity due to excess calories; E11.9 Type 2 diabetes mellitus without complications; Z79.84 Long term (current) use of oral hypoglycemic drugs; Z79.899 Other long term (current) drug therapy; Z88.0 Allergy status to penicillin; Z91.018 Allergy to other foods
CPT/HCPCS: 80051; 80053; 85025; 86850; 86900; 86901; 88307; 94760